=== PATIENT | male | born 1965 | race Caucasian/White ===

== ENCOUNTER 2024-10-01 10:24 | Emergency (ER) | payer MEDICARE, MEDICAID, SELFPAY ==
[2024-10-01 10:32] VITALS: BP 161/88; PULSE 69; RESP 18; TEMP 36.6; O2SAT 98; BMI 26.8
--- NOTE | 2024-10-01 11:09 | XR_ITS ---
WS: [id number] XR hip RT 2-3V wo/w pel* [id number] REASON FOR EXAM: PAIN FINDINGS: No acute fracture or focal bone lesion. Mild narrowing of the joint space. Moderate subchondral sclerosis and significant osteophytosis of the acetabulum. Minimal osteophytosis of the femoral head. XR/XR hip RT 2-3V wo/w pel* [id number] IMPRESSION: Moderate osteoarthritis of the right hip.
--- NOTE | 2024-10-01 11:09 | XR_ITS ---
WS: [id number] XR knee RT 1-2V [id number] REASON FOR EXAM: PAIN FINDINGS: Probable trace joint effusion. No fracture or focal bone lesion. Joint spaces of the knee are intact and relatively well preserved. XR/XR knee RT 1-2V [id number] IMPRESSION: No acute abnormality. Trace joint effusion without significant arthropathic change.
--- OUTSIDE RECORDS SUMMARY | 2024-10-01 11:24 | XMS_ITS | Data Portability ---
Author Organization ID - [id number] [place], ADMIN Address [address] [place] [id number] Care Team Providers Care Physical Chemist Name Role Phone [facility] CATHIE PATTON Primary Care Provider Assessment Encounter Date Assessment Date Assessment LastModified by Organization Details LastModified Time 07/05/2020 07/05/2020 54 y/o gentleman for evaluation of left shoulder partial thickness RCR with ookala 06/17/20 1. Caitlin removed. 2. Rx physical therapy. 3. Continue wearing immobilizer/sling at bed time. 4. Encouraged to use assisted elevation when needed. 5. Continue with at home pendulum exercises 5 timer per day. The pt will RTC in 4 weeks [email or web address] Not available 07/05/2020 16:17:25 08/02/2020 08/02/2020 54 y/o gentleman for evaluation of left shoulder partial thickness RCR with kyle 06/17/20 (6 weeks out) 1. Again demonstrated pendulum exercises, he reports he has been doing this at home. 2. Encouraged to continue assisted elevation, he may not elevate on his own until 8 weeks. 3. D/c sling. 4. Continue formal PT 2 times per week. RTC in 4 weeks. [email or web address] Not available 08/02/2020 10:45:15 11/17/2021 11/17/2021 I did review the x-rays of his lumbar spine from today. He does have evidence of changes of surgical fusion involving the L5-S1 level. He does have multilevel degenerative findings above the fusion. There is no indication of spondylolisthesis related findings. I did review the CT scan of his lumbar spine performed on 11/04/2021 today. He does have evidence of interbody and posterior lateral fusion at the L5-S1 level. He does have laminectomy surgical changes at the L5-S1 level. There is some degree of screw penetrates involving the right S1 foramen in regards to the right S1 pedicle screw. 1. lumbar spondylosis 2. chronic low back pain 3. lumbar radiculopathy 4. previous L5-S1 fusion with laminectomy, performed in 2009 or 2010 in [place], [place] [email or web address] Not available 11/17/2021 12:43:33 05/21/2022 05/21/2022 This is a 56-year-old male who is being seen in consultation for evaluation of GERD and history of colorectal polyps. Patient's last colonoscopy was over 5 years ago. Patient was told he had multiple polyps. He reports a family history of colon cancer in his paternal uncle. The patient has a history of hypertension, diabetes and anxiety. The patient is undergone back surgery, appendectomy. The patient reports no rectal bleeding. He currently takes omeprazole 40 mg daily for acid reflux disorder. Impression: 1. GERD currently on omeprazole 40 mg p.o. daily 2. Screening/surveilla nce colonoscopy 3. History of adenomatous colon polyps with last colonoscopy 5 years ago 4. Family history of colon cancer in paternal uncle 5. Other medical issues: Hypertension, diabetes, anxiety Recommendations: 1. Schedule EGD to evaluate for erosive esophagitis and Casiano's and a screening/surveilla nce colonoscopy 2. Continue omeprazole 40 mg p.o. daily 3. Antireflux precautions 4. follow-up and further recommendations based on endoscopic findings [email or web address] Not available 05/21/2022 18:49:02 07/03/2022 07/03/2022 This is a 56-year-old male who presents for follow-up. The patient completed a colonoscopy for screening/surveilla nce on 06/19/2022 which revealed moderate size internal hemorrhoids, mild to moderate sigmoid diverticulosis, 10 mm and 12 mm sessile left colon polyps otherwise normal examination to cecum. EGD revealed evidence of gastritis. Patient currently is on omeprazole 20 mg p.o. once daily. Biopsy results reviewed. No H. pylori identified, no Casiano's esophagus identified, tubular adenomatous polyp identified. Patient has a family history of colon cancer paternal uncle. Impression: 1. GERD currently on omeprazole 20 mg p.o. daily. EGD 06/19/2022 revealed no Casiano's esophagus. 2. Adenomatous colon polyp 06/19/2022 3. Family history of colon cancer paternal uncle. 4. Other medical issues: Hypertension, diabetes, anxiety. Recommendations: 1. Continue omeprazole 20 mg p.o. daily 2. Antireflux precaution 3. Repeat screening/surveilla nce colonoscopy 2 to 3 years 4. Follow-up and further recommendations based on clinical course. [email or web address] Not available 07/03/2022 20:20:18 Plan of Treatment Reminders Order Date Submit Date Provider Last Modified By Organization Details Last Modified Time Details Appointments None recorded . Lab None recorded . Referral None recorded . Procedures colonosc opy procedur e (PROC) - IV Lock, Initiate Take biopsies if indicate d, possible hemorroi bryson banding, possible argon plasma coagulat ion, possible hot/cold snare polypect valeria, possible dilation of strictur e. CPT: 00518, 08809, 24564,45 382 2022 023 [email or web address] [facility], [address], [place], [address], 3 13:50:27 upper endoscop y procedur e (EGD) (PROC) - Possible Procedur es: Take biopsies if indicate d, possible variceal banding, possible argon plasma coagulat ion, possible esophage al dilation , possible snare polypect valeria. Pre-Proc edure Orders: 1. Start 20 gauge or larger heparin/ saline lock, may use 0.5 ml of 1% lidocain e or topical anesthet ic cream. Start IVF of Lactated Ringers at 80 ML/HR. Post Procedur e: 1. Vitals every 5 minutes times 3, then every 30 minutes until discharg e. 2. Remove IV when tolerati ng liquids well. 3. Discharg e when meets criteria . 4. Schedule Clinic Follow up in 3 weeks CPT: 45259, 23996, 04232, 51250 2022 023 ERIK [facility], [address], [place], [address], 3 09:09:19 Surgeries None recorded . Imaging XR, lumbosac ral spine, 4 or more view [address] (Radiology), [address], [place], [address], 2 10:11:06 MRI, lumbar spine, w/o contrast [address] (Radiology), [address], [place], [address], 2 10:11:06 Medication Orders Suprep Bowel Prep Kit 17.5 gram-3.1 3 gram-1.6 gram oral solution 2022 023 [facility], [address] [place] [address], [id number], 18:52:09 Patient TargetsNo targets recorded. Patient Instructions Encounter Date Encounter Id Patient Instructions Last Modified By Organization Details Last Modified Time 07/05/2020 [id number] Marika Cantu, acting as scribe, for Dr. Janis Valadez, to document his verbalization of the History of Present Illness, Physical Exam, Assessment and Plan. Odessa Seth 07/05/2020, 1510. I, Dr. Janis Valadez, hereby attest that I personally reviewed the documentation in the History of Present Illness, Review of Systems, Physical Exam, Assessment and Plan and agree the documentation accurately represents these services and the decisions I made. I also reviewed the documented Review of Systems and the Past, Family, and Social History made changes and/or additions as needed. Dr. Janis Valadez MD. [email or web address] Not available 07/05/2020 16:10:10 08/02/2020 [id number] Marika Cantu, acting as scribe, for Dr. Janis Valadez, to document his verbalization of the History of Present Illness, Physical Exam, Assessment and Plan. Odessa Seth 08/02/2020, Dr. Janis Cantu, hereby attest that I personally reviewed the documentation in the History of Present Illness, Review of Systems, Physical Exam, Assessment and Plan and agree the documentation accurately represents these services and the decisions I made. I also reviewed the documented Review of Systems and the Past, Family, and Social History made changes and/or additions as needed. Dr. Janis Valadez MD. [email or web address] Not available 08/02/2020 10:42:19 11/17/2021 [id number] I did have a discussion with the patient in regard to his ongoing issues of pain and next steps at this stage. I do think it is appropriate to obtain an MRI of his lumbar spine as a next step as part of his care evaluation for the severe pain issues. I will plan to see him in follow-up to discuss the MRI findings. He will call with questions or concerns in the meantime. [email or web address] Not available 11/17/2021 12:46:07 Reason for Referral None Reported. Results Created Date Observation Date Name Description Value Unit Range Abnormal Flag Note LastModifiedBy Organization Detail LastModifiedTime 06/16/19 21 06/15/2020 CBC w/ auto diff WBC 5.3 K/uL 4.0-11 .0 Not Available [facility] (Lab)_do Not Use [address], [place], [address], 06/15/2020 15:33:27 06/16/19 21 06/15/2020 CBC w/ auto diff RBC 5.43 M/uL 4.44-6 .00 Not Available [facility] (Lab)_do Not Use [address], [place], [address], 06/15/2020 15:33:27 06/16/19 21 06/15/2020 CBC w/ auto diff HGB 17.2 g/dL 13.3-1 7.7 Not Available [facility] (Lab)_do Not Use [address], [place], [address], 06/15/2020 15:33:27 06/16/19 21 06/15/2020 CBC w/ auto diff HCT 50.2 % 40.0-5 4.0 Not Available [facility] (Lab)_do Not Use [address], [place], [address], 06/15/2020 15:33:27 06/16/19 21 06/15/2020 CBC w/ auto diff MCV 92.5 fL 80.0-9 7.0 Not Available [facility] (Lab)_do Not Use [address], [place], [address], 06/15/2020 15:33:27 06/16/19 21 06/15/2020 CBC w/ auto diff MCH 31.7 pg 27.0-3 3.0 Not Available [facility] (Lab)_do Not Use [address], [place], [address], 06/15/2020 15:33:27 06/16/19 21 06/15/2020 CBC w/ auto diff MCHC 34.3 g/dL 32.0-3 6.0 Not Available [facility] (Lab)_do Not Use [address], [place], [address], 06/15/2020 15:33:27 06/16/19 21 06/15/2020 CBC w/ auto diff RDW 13.8 % 11.5-1 4.5 Not Available [facility] (Lab)_do Not Use [address], [place], [address], 06/15/2020 15:33:27 06/16/19 21 06/15/2020 CBC w/ auto diff MPV 7.8 fL 7.4-10 .4 Not Available [facility] (Lab)_do Not Use [address], [place], [address], 06/15/2020 15:33:27 06/16/19 21 06/15/2020 CBC w/ auto diff platelet count 207 K/uL 150-45 0 Not Available [facility] (Lab)_do Not Use [address], [place], [address], 06/15/2020 15:33:27 06/16/19 21 06/15/2020 CBC w/ auto diff neutrophils 59.9 % 37.0-7 0.0 Not Available [facility] (Lab)_do Not Use [address], [place], [address], 06/15/2020 15:33:27 06/16/19 21 06/15/2020 CBC w/ auto diff lymphocytes 26.8 % 21.0-5 1.0 Not Available [facility] (Lab)_do Not Use [address], [place], [address], 06/15/2020 15:33:27 06/16/19 21 06/15/2020 CBC w/ auto diff monocytes 10.2 % 2.0-9. 0 high Not Available [facility] (Lab)_do Not Use [address], [place], [address], 06/15/2020 15:33:27 06/16/19 21 06/15/2020 CBC w/ auto diff eosinophils 2.3 % 0.0-3. 0 Not Available [facility] (Lab)_do Not Use [address], [place], [address], 06/15/2020 15:33:27 06/16/19 21 06/15/2020 CBC w/ auto diff basophils 0.8 % 0.0-1. 0 Not Available [facility] (Lab)_do Not Use [address], [place], [address], 06/15/2020 15:33:27 06/16/19 21 06/15/2020 CBC w/ auto diff absolute neutrophils 3.1 K/uL 2.0-8. 0 Not Available [facility] (Lab)_do Not Use [address], [place], [place], [address], 06/15/2020 15:33:27 06/16/19 21 06/15/2020 CBC w/ auto diff absolute lymphocytes 1.4 K/uL 1.0-5. 5 Not Available [facility] (Lab)_do Not Use [address], [place], [place], [address], 06/15/2020 15:33:27 06/16/19 21 06/15/2020 CBC w/ auto diff absolute monocytes 0.5 K/uL 0.3-0. 8 Not Available [facility] (Lab)_do Not Use [address], [place], [place], [address], 06/15/2020 15:33:27 06/16/19 21 06/15/2020 CBC w/ auto diff absolute eosinophils 0.1 K/uL 0.0-0. 6 Not Available [facility] (Lab)_do Not Use [address], [place], [place], [address], 06/15/2020 15:33:27 06/16/19 21 06/15/2020 CBC w/ auto diff absolute basophils 0.0 K/uL 0.0-0. 3 Not Available [facility] (Lab)_do Not Use [address], [place], [address], 06/15/2020 15:33:27 06/16/19 21 06/15/2020 CMP, serum or plasm a glucose 99 mg/dL 70-110 Not Available [facility] (Lab)_do Not Use [address], [place], [place], [address], 06/15/2020 15:38:06 06/16/19 21 06/15/2020 CMP, serum or plasm a BUN 4 mg/dL 7-18 low Not Available [facility] (Lab)_do Not Use [address] [place], [address], 06/15/2020 15:38:06 06/16/19 21 06/15/2020 CMP, serum or plasm a creatinine 0.8 mg/dL 0.5-1. 4 Not Available [facility] (Lab)_do Not Use [address] [place], [address], 06/15/2020 15:38:06 06/16/19 21 06/15/2020 CMP, serum or plasm a calcium 9.7 mg/dL 8.5-10 .1 Not Available [facility] (Lab)_do Not Use [address] [place], [address], 06/15/2020 15:38:06 06/16/19 21 06/15/2020 CMP, serum or plasm a sodium 135 mmol/ L 135-14 8 Not Available [facility] (Lab)_do Not Use [address] [place], [address], 06/15/2020 15:38:06 06/16/19 21 06/15/2020 CMP, serum or plasm a potassium 3.8 mEq/L 3.5-5. 3 Not Available [facility] (Lab)_do Not Use [address], [place], [address], 06/15/2020 15:38:06 06/16/19 21 06/15/2020 CMP, serum or plasm a chloride 101 mmol/ L 95-110 Not Available [facility] (Lab)_do Not Use [address], [place], [address], 06/15/2020 15:38:06 06/16/19 21 06/15/2020 CMP, serum or plasm a CO2 24 mmol/ L 21-34 Not Available [facility] (Lab)_do Not Use [address], [place], [place], [address], 06/15/2020 15:38:06 06/16/19 21 06/15/2020 CMP, serum or plasm a albumin 4.1 g/dL 3.5-5. 0 Not Available [facility] (Lab)_do Not Use [address], [place], [place], [address], 06/15/2020 15:38:06 06/16/19 21 06/15/2020 CMP, serum or plasm a bilirubin 0.5 mg/dL 0.0-1. 0 Not Available [facility] (Lab)_do Not Use [address], [place], [place], [address], 06/15/2020 15:38:06 06/16/19 21 06/15/2020 CMP, serum or plasm a alkaline phosphatase 70 U/L 50-136 Not Available [facility] (Lab)_do Not Use [address], [place], [place], [address], 06/15/2020 15:38:06 06/16/19 21 06/15/2020 CMP, serum or plasm a protein 7.6 g/dL 6.4-8. 3 Not Available [facility] (Lab)_do Not Use [address], [place], [place], [address], 06/15/2020 15:38:06 06/16/19 21 06/15/2020 CMP, serum or plasm a ALT (SGPT) 27 U/L 30-65 low Not Available [facility] (Lab)_do Not Use [address], [place], [place], [address], 06/15/2020 15:38:06 06/16/19 21 06/15/2020 CMP, serum or plasm a AST (SGOT) 23 U/L 15-37 Not Available [facility] (Lab)_do Not Use [address], [place], [place], [address], 06/15/2020 15:38:06 06/16/19 21 06/15/2020 CMP, serum or plasm a A/G ratio 1.17 Na 1.00-2 .50 Not Available [facility] (Lab)_do Not Use [address], [place], [place], [address], 06/15/2020 15:38:06 06/16/19 21 06/15/2020 CMP, serum or plasm a BUN/creatine ratio 5.00 Na 6.00-2 0.00 low Not Available [facility] (Lab)_do Not Use [address], [place], [place], [address], 06/15/2020 15:38:06 06/16/19 21 06/15/2020 CMP, serum or plasm a anion gap 10.0 mmol/ L 3.0-11 .0 Not Available [facility] (Lab)_do Not Use [address], [place], [place], [address], 06/15/2020 15:38:06 06/16/19 21 06/15/2020 CMP, serum or plasm a osmolality calcuated 267 mOsm/ kg 275-29 5 low Not Available [facility] (Lab)_do Not Use [address], [place], [place], [address], 06/15/2020 15:38:06 06/16/19 21 06/15/2020 GFR, estim ated (eGFR ), serum GFR >60.00 mL/mi n >60.00 Not Available [facility] (Lab)_do Not Use [address], [place], [place], [address], 06/15/2020 15:38:11 06/16/19 21 06/15/2020 urina lysis , dipst ick color COLORL ESS Na Not Available [facility] (Lab)_do Not Use [address], [place], [address], 06/15/2020 15:38:12 06/16/19 21 06/15/2020 urina lysis , dipst ick appearance CLEAR Na Not Available [facility] (Lab)_do Not Use [address], [place], [address], 06/15/2020 15:38:12 06/16/19 21 06/15/2020 urina lysis , dipst ick specific gravity 1.001 Na 1.005- 1.030 Not Available [facility] (Lab)_do Not Use [address], [place], [address], 06/15/2020 15:38:12 06/16/19 21 06/15/2020 urina lysis , dipst ick pH urine 6.0 Na 4.5-7. 5 Not Available [facility] (Lab)_do Not Use [address], [place], [address], 06/15/2020 15:38:12 06/16/19 21 06/15/2020 urina lysis , dipst ick leukocytes esterase NEGATI VE Na negati ve Not Available [facility] (Lab)_do Not Use [address], [place], [address], 06/15/2020 15:38:12 06/16/19 21 06/15/2020 urina lysis , dipst ick nitrites NEGATI VE Na negati ve Not Available [facility] (Lab)_do Not Use [address], [place], [address], 06/15/2020 15:38:12 06/16/19 21 06/15/2020 urina lysis , dipst ick urine protein NEGATI VE mg/dL negati ve Not Available [facility] (Lab)_do Not Use [address], [place], [address], 06/15/2020 15:38:12 06/16/19 21 06/15/2020 urina lysis , dipst ick glucose ur NEGATI VE mg/dL negati ve Not Available [facility] (Lab)_do Not Use [address], [place], [address], 06/15/2020 15:38:12 06/16/19 21 06/15/2020 urina lysis , dipst ick ketones NEGATI VE mg/dL negati ve Not Available [facility] (Lab)_do Not Use [address], [place], [address], 06/15/2020 15:38:12 06/16/19 21 06/15/2020 urina lysis , dipst ick urobilinogen NEGATI VE mg/dL 0.2-1. 0 Not Available [facility] (Lab)_do Not Use [address], [place], [address], 06/15/2020 15:38:12 06/16/19 21 06/15/2020 urina lysis , dipst ick bilirubin NEGATI VE Na negati ve Not Available [facility] (Lab)_do Not Use [address], [place], [address], 06/15/2020 15:38:12 06/16/19 21 06/15/2020 urina lysis , dipst ick blood NEGATI VE Na negati ve Not Available [facility] (Lab)_do Not Use [address], [place], [address], 06/15/2020 15:38:12 06/16/19 21 06/15/2020 covid Ag covid Ag michelle Negati ve Na negati ve Metho dolog y:Sof ia Sars Ag MICHELLE. Negat keisha resul ts do not rule out COVID -19 and shoul d not be used as the sole basis for treat ment or patie nt manag ement decis ions, inclu ding infec tion contr ol decis ions. Negat keisha resul ts shoul d be consi dered in the bess xt of a patie nt's recen t expos ures, histo ry and prese nce of clini anny signs and sympt oms consi stent with COVID -19. Not Available [facility] (Lab)_do Not Use [address], [place], [address], 06/15/2020 15:43:41 06/16/19 21 06/15/2020 HbA1c (hemo globi n A1c), blood HGB A1C 5.7 % 4.8-6. 0 Not Available [facility] (Lab)_do Not Use [address], [place], [address], 06/15/2020 15:44:08 06/18/19 21 06/17/2020 gluco se, finge rstic k, blood bedside glucose 125.00 mg/dL 70.00- 110.00 high Not Available [facility] (Lab)_do Not Use [address], [place], [address], 06/17/2020 09:46:55 06/20/19 23 06/19/2022 GLUCO SE LEVEL POC BEDSI DE glu POC bdside 124 mg/dL 65-90 [place]: [id number] Not Available [facility] (Lab) [address], [place], [address], 06/19/2022 07:45:29 06/20/19 23 06/30/2022 SURGI ANNY PATHO LOGY REPOR T results . ACCES GUERO: 850-S P-23- [id number] RESPO NSIBL E PATHO LOGIS T: YESENIA DANIEL MD COLLE CTED DATE/ TIME: 023 07:37 CDT [facility] DATE/ TIME 023 09:19 CDT Surgi anny Patho logy Repor t - 2022 15:08 CDT - Auth (Veri fied) Speci men 1 Gastr ic bx 2 GE junct ion bx 3 Left colon polyp x 2 Diagn osis 1. STOMA CH, BIOPS Y: NO HISTO PATHO LOGIC ABNOR MALIT Y, WITH NO HELIC OBACT ER PYLOR I ORGAN ISMS SEEN ON H&E STAIN . 2. GASTR OESOP HAGEA L JUNCT ION, BIOPS Y: GASTR IC MUCOS A ONLY, INFLA MED AND WITH REACT KEISHA AGUILAR ES. - NO HELIC OBACT ER PYLOR I ORGAN ISMS ARE SEEN ON H&E STAIN . - NO EVIDE NCE OF SPECI SHELLI D INTES TINAL -TYPE MUCOS A. 3. LARGE INTES MAHAD, LEFT COLON , POLYP ECTOM Y: TUBUL AR ADENO MAS. El ectro nical ly Michelle d By YESENIA DANIEL MD 06/30 15:08 CDT Saqib Bello Patho logis t Emily tant 06/20 09:46 CDT MRS Perfo rmed at: [facility] [address] [facility] [place] [address] Phone : Micro scopi c Descr iptio n Micro scopi c exami natio n is perfo rmed. All stain s perfo rmed for this case (whic h may inclu de H&E, froze n secti on, immun ohist ochem istry , and speci al stain s) have been evalu ated by quali fied patho logis t and are consi dered accep table . All contr ols show appro priat e react ivity . Gross Descr iptio n 1. Recei hossein in a forma michael-f illed conta iner label ed with the patie nt's name (Turn er, Jose Antonio y S), date of (08/26 ), and desig nated as Sina luis daniel bx, are four irreg ular mahan-r ed soft tissu e fragm ents measu ring 0.3-0 .5 cm in dimen guero. The speci men is entir natty submi tted in a casse tte label ed 1A . 2. Recei hossein in a forma michael-f illed conta iner label ed with the patie nt's name (Jose Antonio Cid y S), date of (08/26 ), and desig nated as GE junct ion bx, are two irreg ular mahan-r ed soft tissu e fragm ents measu ring 0.3 and 0.4 cm in dimen guero. The speci men is entir natty submi tted in a casse tte label ed 2A . 3. Recei hossein in a forma michael-f illed conta iner label ed with the patie nt's name (Thom erGarryn y S), date of (08/26 ), and desig nated as Left colon polyp x 2, are two irreg ular mahan-r ed soft tissu e fragm ents each measu ring 0.4 cm in great est dimen guero. The speci men is entir natty submi tted in a casse tte label ed 3A . MRS/M RS/MR S 06/20 09:46 CDT Patho logis t Gross Revie w 06/20 11:40 :58 CDT MRS 06/21 08:33 :10 CDT BP Clini anny Histo ry GERD , colon scree shashank ACCES GUERO: 850-S P-23- [id number] RESPO NSIBL E PATHO LOGIS T: YESENIA DANIEL MD COLLE CTED DATE/ TIME: 023 07:37 CDT [facility] DATE/ TIME 023 09:19 CDT Clini anny Histo ry Proce dure: EGD/C OLON Preop erati ve Diagn osis: GERD, colon scree shashank Posto perat keisha Diagn osis: See endo repor t Not Available [facility] (Lab) [address] [place] [address], [place], [address], 06/30/2022 16:08:45 06/16/19 21 06/15/2020 XR, chest , 1 view PARTIA L THICKN ESS ROTATO R CUFF TEAR PRE-OP FOR 4-2 Proced ure Acknow ledge Date: 2020 12:21 PM EXAM: Single view chest. HISTOR Y: Preop evalua tion COMPAR GORDON: 2016 FINDIN GS: The heart is normal in size. Pulmon jaycee vascul arity is within normal limits . No focal airspa ce opacit y or pleura l effusi on is seen. Osseou s struct ures are unrema rkable . IMPRES GUERO: No acute cardio pulmon jaycee findin gs. DICTAT ED DATE: 1338 DICTAT ED BY: Edis Newton M.D. TRANSC RIBED DATE: 1338 TRANSC RIBED BY: JAKE SIGNED BY: Edis Newton M.D. DT: 2020 01:39 PM Dictat ed By: EDIS NEWTON MD DF: 2020 01:39 PM Signed By: EDIS NEWTON MD Provid er(s): Alberto Caal er: Result Copies To: Attend belle Doctor : JANIS VALADEZ Referr belle Doctor : Mony sherwood Doctor : Anthony odonnell Doctor : Other Health care Provid er: [email or web address] [place] [address] (Radiology) [address], [place], [address], 06/15/2020 17:08:06 06/16/19 21 06/15/2020 XR, chest No observ ation record ed. [email or web address] [facility] (Radiology Dept) [address], [place], [address], 06/15/2020 17:07:32 11/18/19 22 11/17/2021 sp-LS spine W bnd dr Gaston4.50 CHRONI C LOW BACK PAIN Proced ure Acknow ledge Date: 2021 10:19 AM EXAM: AP, latera l, flexio n, and extens ion views of the lumbar spine. HISTOR Y: Chroni c low back pain COMPAR GORDON: CT lumbar spine 2021. FINDIN GS: No eviden ce of lumbar scolio sis is seen. Black Off Worker ior karyn and pedicl e screw fusion is again seen spanni ng L5-S1. The verteb ral body height s appear mainta ined. Minima l multil evel disc space narrow ing with small endpla te osteop hytes are seen. No signif icant listhe sis is seen. Lower lumbar facet osteoa rthrit is is seen. OPINIO N: 1. No signif icant listhe sis. 2. Minor lumbar spondy losis. 3. L5-S1 limnologist ior fusion . DICTAT ED DATE: 1619 DICTAT ED BY: Edis Newton M.D. TRANSC RIBED DATE: 1619 TRANSC RIBED BY: JAKE SIGNED BY: Edis Newton M.D. DT: 2021 04:20 PM Dictat ed By: EDIS NEWTON MD DF: 2021 04:20 PM Signed By: EDIS NEWTON MD Suppor ting Provid er(s): Orderi ng Provid er: Result Copies To: Yvonne [facility] Doctor : KRANTHI Riddle Referr [facility] Doctor : Mony sherwood Doctor : Anthony odonnell Doctor : Other Health care Provid er: [email or web address] [place] [address] (Radiology) [address] [facility], [place], [address], 12/22/2021 18:17:36 Result Notes None recorded. Problems Name Problem SNOMED Code Status Onset Date Resolution Date Notes Provider Name and Address Organization Details Recorded Time Chronic low back pain 861318111 Active 022 ABEBE Garcia, [address] 11:43:15 Problem Notes None recorded. Procedures Surgical History Date Name Laterality Status Provider Name and Address Organization Details Recorded Time Cholecystectomy completed [facility] Schmidt LPN [facility] [place] 01/07/2020 10:50:36 Appendectomy completed Carey Schmidt LPN [address] 01/07/2020 10:50:44 Back Surgery completed Carey Schmidt LPN [address] 01/07/2020 10:50:59 Shoulder joint surgery completed Jacinta Weber RN [address] 11/17/2021 11:45:24 Imaging Results None recorded. Procedure Notes None recorded. Medical Equipment None Reported. Allergies Allergen ID Allergen Name Allergen Category Reaction Reaction Severity Criticality Documentation Date Start Date Code Code System Note Provider Name and Address Organization Details Recorded Time 11477 morphine medicatio n Not available Not available Not available 01/07/2020 7052 RxNorm Careynoble Schmidt LPN compa [address] 0 10:47:43 [address]6796 Substance with sulfonami de structure and antibacte rial mechanism of action (substanc e) medicatio n Not available Not available Not available 01/07/2020 00229 8003 SNOMED Careymichelet Schmidt LPN compa [address] 0 10:47:50 Medications Name Sig Start Date Stop Date Status Note LastModified by Organization Details LastModified Time magic mouthwash milliliters active Not Available Not Available Not Available cyclobenzap rine 10 mg tablet TAKE ONE TABLET BY MOUTH TWICE DAILY NEEDED FOR MUSCLE PAIN/SPAS MS active Not Available Not Available No t Available metformin 500 mg tablet 01/06 completed Not Available Not Available Not Available albuterol sulfate 2.5 mg/3 mL (0.083 %) solution for nebulizatio n USE THE CONTENTS OF 1 VIAL VIA NEBULIZER FOUR TIMES DAILY NEEDED active Not Available Not Available No t Available oxybutynin chloride ER 10 mg tablet,exte nded release 24 hr active Not Available Not Available Not Available azithromyci n 250 mg tablet TAKE 2 TABLETS BY MOUTH ON DAY 1, AND THEN TAKE 1 TABLET BY MOUTH ONCE A DAY ON DAY 2 THROUGH DAY 5 11/17 completed Not Available Not Available Not Available alprazolam 1 mg tablet TAKE 1 TABLET BY MOUTH EVERY DAY NEEDED active Not Available Not Available No t Available Lidocaine Viscous 2 % mucosal solution 01/06 completed Not Available Not Available Not Available albuterol sulfate 1.25 mg/3 mL solution for nebulizatio n Inhale 3 mL 3 times a day by inhalatio n route. 11/17 completed Not Available Not Available Not Available ondansetron HCl 8 mg tablet TAKE 1 TABLET BY MOUTH TWICE DAILY NEEDED active Not Available Not Available No t Available ondansetron HCl 4 mg tablet 01/06 completed Not Available Not Available Not Available prednisone 20 mg tablet TAKE 3 TABLETS BY MOUTH ONCE DAILY FOR 5 DAYS active Not Available Not Available No t Available acyclovir 400 mg tablet 01/06 completed Not Available Not Available Not Available hydrocodone 10 mg-acetamin ophen 325 mg tablet TAKE ONE TABLET BY MOUTH FOUR TIMES DAILY NEEDED FOR PAIN active Not Available Not Available No t Available omeprazole 40 mg capsule,del ayed release TAKE 1 CAPSULE BY MOUTH EVERY DAY active Not Available Not Available No t Available sildenafil 100 mg tablet TAKE 1 TABLET BY MOUTH ONCE DAILY FOR 30 DAYS active Not Available Not Available No t Available hydrocodone 7.5 mg-acetamin ophen 325 mg tablet TAKE 1 TABLET BY MOUTH FOUR TIMES DAILY NEEDED FOR PAIN 11/17 completed Not Available Not Available Not Available cephalexin 500 mg capsule 01/06 completed Not Available Not Available Not Available metformin 1,000 mg tablet TAKE 1 TABLET BY MOUTH TWICE DAILY active Not Available Not Available No t Available losartan 25 mg tablet TAKE 1 TABLET BY MOUTH EVERY DAY DIRECTED active Not Available Not Available No t Available gabapentin 300 mg capsule TAKE ONE CAPSULE BY MOUTH THREE TIMES DAILY active Not Available Not Available No t Available omeprazole 20 mg capsule,del ayed release TAKE 1 CAPSULE BY MOUTH EVERY DAY 11/17 completed Not Available Not Available Not Available montelukast 10 mg tablet active Not Available Not Available Not Available alcohol swabs 11/17 completed Not Available Not Available Not Available mupirocin 2 % topical ointment 01/06 completed Not Available Not Available Not Available ergocalcife rol (vitamin D2) 1,250 mcg (50,000 unit) capsule active Not Available Not Available Not Available albuterol sulfate HFA 90 mcg/actuati on aerosol inhaler INHALE 2 PUFFS BY MOUTH EVERY 6 HOURS NEEDED active Not Available Not Available No t Available naproxen 500 mg tablet TAKE ONE TABLET BY MOUTH TWICE DAILY WITH MEALS active Not Available Not Available No t Available amoxicillin 875 mg-potassiu m clavulanate 125 mg tablet TAKE 1 TABLET BY MOUTH EVERY 12 HOURS WITH MEALS FOR 10 DAYS active Not Available Not Available No t Available neomycin 3.5 mg/g-polymy supriya B 10,000 unit/g-dexa meth 0.1 % eye oint active Not Available Not Available Not Available neomycin-po lymyxin-hyd rocort 3.5 mg-10,000 unit/mL-1 % ear drops,susp 01/06 completed Not Available Not Available Not Available escitalopra m 10 mg tablet Take 1 tablet every day by oral route. 11/17 completed Not Available Not Available Not Available rosuvastati n 5 mg tablet TAKE 1 TABLET BY MOUTH AT BEDTIME active Not Available Not Available No t Available metformin ER 1,000 mg tablet,exte nded release 24 hr Take by oral route. 01/06 completed Not Available Not Available Not Available omeprazole 01/06 completed Not Available Not Available Not Available naproxen 01/06 completed Not Available Not Available Not Available cyclobenzap rine 01/06 completed Not Available Not Available Not Available sodium,pota ssium,mag sulfates 17.5 gram-3.13 gram-1.6 gram oral soln Take 177 mL twice a day by oral route as directed for 1 day. active Not Available Not Available No t Available OneTouch Verio test strips active Not Available Not Available Not Available naloxone 4 mg/actuatio n nasal spray USE 1 SPRAY INTRANASA LLY THEN CALL 911 FOR EMERGENCY TREAMENT active Not Available Not Available No t Available OneTouch Verio Flex Meter active Not Available Not Available Not Available OneTouch Delica Plus Lancet 30 gauge active Not Available Not Available Not Available Vitals Date Recorded Body height Body mass index (BMI) Body weight Oxygen saturation Oxygen saturation in Arterial blood by Pulse oximetry Heart rate Body temperature Systolic And Diastolic Provider Name and Address Organization Details Last Updated DateTime 3 182.88 cm 27.6 kg/m2 21876.1 3 g 98 % 98 % 82 /min 98.3 [degF] 118/73 mm[Hg] Magali Eason LPN [place] [facility] [place] 3 16:21:20 Date Recorded Body height Body mass index (BMI) Body weight Oxygen saturation Oxygen saturation in Arterial blood by Pulse oximetry Heart rate Systolic And Diastolic Provider Name and Address Organization Details Last Updated DateTime 3 182.88 cm 27.3 kg/m2 96659.0 7 g 98 % 98 % 80 /min 128/78 mm[Hg] Harmeet Wolfe LPN [address] 3 14:45:07 Date Recorded Body height Body mass index (BMI) Body weight Heart rate Body temperature Systolic And Diastolic Provider Name and Address Organization Details Last Updated DateTime 1 182.88 cm 27 kg/m2 93190.8 8 g 83 /min 97.7 [degF] 148/91 mm[Hg] Angelica Mata LPN [address] 1 15:47:31 Date Recorded Body height Body mass index (BMI) Body weight Heart rate Body temperature Systolic And Diastolic Provider Name and Address Organization Details Last Updated DateTime 1 182.88 cm 27.1 kg/m2 11621.4 7 g 76 /min 96.8 [degF] 138/84 mm[Hg] Angelica Mata LPN [address] 1 10:24:39 Date Recorded Body height Body mass index (BMI) Body weight Heart rate Systolic And Diastolic Provider Name and Address Organization Details Last Updated DateTime 11/17/2021 182.88 cm 27.1 kg/m2 01007.47 g 90 /min 153/85 mm[Hg] Jacinta Weber RN [address] 11/17/2021 11:40:41 Social History Question Answer Notes LastModified by Organizat ion Details LastModified Time Tobacco Smoking Status Never Smoker STEPHANIE Navarrete, [address] 01/07/2020 16:11:58 What Is Your Level Of Caffeine Consumption? Heavy [email or web address] Information not available 05/12/2020 What Type Of Diet Are You Following? DIABETIC [email or web address] Information not available 05/12/2020 Education 12 [email or web address] Information n ot available 05/12/2020 Which Of Your Hands Is Dominant? Bilateral [email or web address] Information not available 05/12/2020 Live Alone Or With Others? With Others [email or web address] Information not available 05/12/2020 Marital Status [email or web address] Informati on not available 05/12/2020 What Was The Date Of Your Most Recent Tobacco Screening? 11/17/2021 [email or web address] Information not available 11/17/2021 Sex: Unknown Functional Status Question Answer Note LastModified by Organizat ion Details LastModified Time What is your level of alcohol consumption? Occasional [email or web address] Information not available 01/07/2020 Do you or have you ever used smokeless tobacco? Currently chews tobacco [email or web address] Information not available 05/12/2020 Are you currently employed? No [email or web address] Information not available 05/12/2020 Are you able to care for yourself? Yes [email or web address] Information not available 05/12/2020 Do you or have you ever used e-cigarettes or vape? Never used electronic cigarettes [email or web address] Information not available 05/12/2020 Mental Status None recorded. Family History Relationship Description Onset Age of this Age Resolved Age Notes LastModified by Organization Details LastModified Time Father Diabetes mellitus [email or web address] Not available 04/19 12:26:00 Father Cerebrovascu lar accident [email or web address] Not available 0 05/12/2020 12:26:33 Father Hypertensive disorder [email or web address] Not available 04/19 12:26:50 Mother Malignant neoplasm of lung [email or web address] Not available 04/19 12:26:14 Mother Hypertensive disorder [email or web address] Not available 04/19 12:26:50 Medical History Condition Response ARTHRITIS N HEADACHES N RHEUMATIC FEVER N USE OF BLOOD THINNERS N STROKE N DIABETES Y HIGH CHOLESTEROL N BLOOD CLOTS N HEPATITIS / LIVER DISEASE N ASTHMA Y PULMONARY DISEASE Y CAROTID BLOCKAGE N CONCUSSION OR SPINAL TRAUMA Y SEIZURES N SLEEP DISORDER Y DEPRESSION (INCLUDING POST ) N BACK / NECK PROBLEMS Y HAVE YOU BEEN HOSPITALIZED OR SEEN IN [facility] IN THE PAST YEAR ? Y HERPES N THYROID DISEASE N ALLERGIES Y ANEMIA N DIZZINESS N GERD / HEARTBURN / REFLUX Y HERNIATED DISC Y HYPERTENSION N CARDIAC ARRHYTHMIA N HIV / AIDS N ANXIETY DISORDER Y ANEMIA/BLOOD DISORDER N PNEUMONIA Y ANEURYSM N PULMONARY EMBOLISM N BRONCHITIS Y HEART DISEASE N CANCER N Past Encounters Encounter ID Performer Location Encounter Start Date Encounter Closed Date Diagnosis/Indication Diagnosis SNOMED-CT Code Diagnosis ICD10 Code Diagnosis Note [id number] Sara Pendleton MD [facility] [address] [place] [id number] 01/07/2020 15:42:27 01/07/2020 16:51:57 Obstructive sleep apnea syndrome 48647283 G47.33 Home sleep study showed an RDI of 8.5. Patient does have daytime fatigue and sleepiness . The did mention witnessed apnea. Today the patient will be started on auto CPAP 5-20 cm H2O. The plan is:1. Start Auto C-pap. Patient undergo mask fitting.2. Follow-up in 6 weeks. Asthma 094464391 J45.90 9 The patient mentioned shortness of breath on exertion. He has history of asthma. He is on Ventolin inhaler as needed. She uses the inhaler around 2 to 3 times a week. His symptoms are consistent with intermitte nt asthma. I recommend continued Ventolin inhaler as needed. [id number] JANIS VALADEZ MD [facility] [address] [place] [id number] 05/12/2020 11:01:43 05/12/2020 15:20:11 Pain of left shoulder joint 5969044372 2055634 M25.760 [id number] JANIS VALADEZ MD [facility] [address] [place] [id number] 06/02/2020 15:06:15 06/02/2020 16:45:17 Partial thickness rotator cuff tear 949002994 M75.112 Arthritis of left glenohumeral joint 7360457075 327557 M13.812 Arthritis of left acromioclavicular joint 3387499512 676196 M13.715 [id number] JANIS VALADEZ MD [facility] [address] [place] [id number] 07/05/2020 15:19:59 07/05/2020 16:18:52 History of repair of musculotendinous cuff of shoulder 162252492 Z98.890 s/p left shoulder partial thickness RCR with kyle 06/17/20 Postoperative visit 1836 76847 Z09 s/p left shoulder partial thickness RCR with kyle 06/17/20 [id number] JANIS VALADZE MD [facility] [address] [place] [address] 08/02/2020 10:14:17 08/02/2020 10:43:59 History of repair of musculotendinous cuff of shoulder 146899657 Z98.890 s/p left shoulder partial thickness RCR with kyle 06/17/20 Postoperative visit 1836 03287 Z09 s/p left shoulder partial thickness RCR with kyle 06/17/20 [id number] Robert Acuna DO [facility] [address] [place] [place] [address] 11/17/2021 10:32:50 11/17/2021 12:49:00 Chronic low back pain 325730759 M54.50 Lumbar spondylosis 46860 0009 M47.896 Lumbar radiculopathy 128 826732 M54.16 History of operative procedure on lumbar spinal structure 128906978 Z98.165 [id number] Binu Anaya MD [facility] [address] [place] [id number] 05/21/2022 15:59:18 05/21/2022 16:32:49 Gastroesophageal reflux disease without esophagitis 385747672 K21.9 History of polyp of colon 259986841 Z86.010 Family his tory of cancer of colon 705564795 Z80.0 [id number] Binu Anaya MD [facility] [address] [place] [address] 07/03/2022 14:37:16 07/03/2022 15:39:16 Gastroesophageal reflux disease without esophagitis 967459252 K21.9 Adenomatou s polyp of colon 900233804 D12.6 Health Concerns Section Related Observation LastModified by Organization Detai ls LastModified Time None Recorded Concern Status LastModified by Organization Details LastModified Time None Recorded Advance Directives Directive None Recorded Payers Insurance Date Sequence Insurance Name Policy Number Policy Henderson Covered Member ID Henderson Member ID Guarantor Name 07/03/2022 2 [place] Amos Diggs Jr [id number] 07/03/2022 1 [place] Amos Diggs [id number] 07/03/2022 1 [facility] (MEDICARE REPLACEMENT/A DVANTAGE - HMO) Amos Diggs [id number] Notes Date Note Type Note Provider Name and Address Organization Details Recorded Time 07/05/2020 text/html Pt is a pleasant 54 y/o gentleman who presents for evaluation of left shoulder partial thickness RCR with ookala 06/17/20. He arrives today rating his pain at a 5 out of 10 in severity. Pt denies associated numbness and confirms tingling. Pt confirms doing at home pendulum exercises. He has c/o stiffness. He has been wearing his sling as instructed. JANIS VALADEZ MD [address] [place] [address], [phone], [address] 07/05/2020 18:01:06 08/02/2020 text/html Pt is a pleasant 54 y/o gentleman who presents for evaluation of left shoulder partial thickness RCR with ookala 06/17/20. He arrives today rating his pain at a 6/10 in severity. Pt denies associated numbness and confirms tingling. Pt confirms doing at home pendulum exercises. His stiffness has improved. He has been wearing his sling as instructed. He has been compliant with formal PT at rehab. Pt would like to cut down on formal PT to 2 times per week. JANIS VALADEZ MD [address] [place] [address], [phone], [facility] [place] 08/02/2020 11:33:48 11/17/2021 text/html Amos Diggs is a pleasant 56-year-old male who presents to the clinic today in regard issues of low back and lower extremity radiating pain. He describes many years of diffuse low back and left lower extremity radicular type pain issues. However, about 2-3 weeks ago or so he developed a sudden onset of severe right-sided low back and right lower extremity radicular pain as a new issue. He did go to the emergency room regarding further consideration of these new pain issues. He denies injury. He did undergo a lumbar fusion procedure with laminectomy it would seem at the L5-S1 level in 2009 or 2010 in [place], [place]. He describes some degree of improvement in his pain issues at that time, but he denies resolution of his low back and left lower extremity radicular pain it would seem in many respects. He is concerned about quality of life issues as it pertains to those ongoing issues of low back and left lower extremity radicular pain. He has been in pain management for a number of years now. He is on narcotic pain medication and has been receiving occasional targeted injection based procedures with pain management. He is concerned about the severity of his new symptoms. He describes pain that is constant at this stage. He describes exacerbation of symptoms with most activities of daily living. He denies improvement in pain thus far. Robert Acuna DO [address] [place] [address], [phone], [facility] [place] 11/17/2021 12:46:28 05/21/2022 text/html This is a 56-yea r-old male who is being seen in consultation for evaluation of GERD and history of colorectal polyps. Patient's last colonoscopy was over 5 years ago. Patient was told he had multiple polyps. He reports a family history of colon cancer in his paternal uncle. The patient has a history of hypertension, diabetes and anxiety. The patient is undergone back surgery, appendectomy. The patient reports no rectal bleeding. He currently takes omeprazole 40 mg daily for acid reflux disorder.Impression:1 . GERD currently on omeprazole 40 mg p.o. daily2. Screening/surveillanc e colonoscopy3. History of adenomatous colon polyps with last colonoscopy 5 years ago4. Family history of colon cancer in paternal uncle5. Other medical issues: Hypertension, diabetes, anxietyRecommendation s: 1. Schedule EGD to evaluate for erosive esophagitis and Casiano's and a screening/surveillanc e colonoscopy 2. Continue omeprazole 40 mg p.o. daily 3. Antireflux precautions 4. follow-up and further recommendations based on endoscopic findings Binu Anaya MD [address] [place] [address], [phone], [facility] [place] 05/21/2022 18:49:14 07/03/2022 text/html This is a 56-yea r-old male who presents for follow-up. The patient completed a colonoscopy for screening/surveillanc e on 06/19/2022 which revealed moderate size internal hemorrhoids, mild to moderate sigmoid diverticulosis, 10 mm and 12 mm sessile left colon polyps otherwise normal examination to cecum. EGD revealed evidence of gastritis. Patient currently is on omeprazole 20 mg p.o. once daily. Biopsy results reviewed. No H. pylori identified, no Casiano's esophagus identified, tubular adenomatous polyp identified. Patient has a family history of colon cancer paternal uncle.Impression: 1. GERD currently on omeprazole 20 mg p.o. daily. EGD 06/19/2022 revealed no Casiano's esophagus.2. Adenomatous colon polyp 06/19/2022 3. Family history of colon cancer paternal uncle.4. Other medical issues: Hypertension, diabetes, anxiety.Recommendatio ns: 1. Continue omeprazole 20 mg p.o. daily 2. Antireflux precaution 3. Repeat screening/surveillanc e colonoscopy 2 to 3 years 4. Follow-up and further recommendations based on clinical course. Binu Anaya MD [address] [place], [phone], [facility] [place] 07/03/2022 20:20:35
--- OUTSIDE RECORDS SUMMARY | 2024-10-01 11:24 | XMS_ITS | Patient Health Record ---
Author Organization [facility] Address [address] [place] [address] Care Team Providers Care Construction Management Assistant Name Role Phone Aj Stone Primary Care Provider Hira Holden Unavailable [phone] Leonora Kern Unavailable [phone] Jorge Marcelina Unavailable [phone] Chace Betts Unavailable [phone] Yanna Ward Unavailable [phone] Allergies Allergen (clinical drug ingredient) Drug/Non Drug Allergy documented on EMR Reaction Allergy Type Onset Date Status morphine Morphine Unknown Drug Allergy Active Substance with sulfonamide structure and antibacterial mechanism of action (substance) Sulfa Antibiotics Unknown Drug Allergy Active Results Component Value Reference Range Flag Notes Presumptive Drug Test - Spec imen Type Urine Reviewed date:09/28/2024 12:15:45 PM Interpretation: Performing Lab: Notes/Report: Opiates Screen Positive 150 ng/mL ng/ml H Benzodiazepines Screen Positive 150 ng/mL ng/ml H Amphetamines Screen Negative 600 ng/mL ng/ml Cocaine Screen Negative 150 ng/mL ng/ml Methadone Screen Negative 150 ng/mL ng/ml 6-WALI Screen Negative 60 ng/mL ng/ml Methamphetamine Screen Negative 600 ng/mL ng/ml Fentanyl Screen Negative 9 ng/mL ng/ml Tricyclic Antidepressants Screen Negative 150 ng/mL ng/m l Buprenorphine Screen Negative 75 ng/mL ng/ml Cannabis Screen Negative 150 ng/mL ng/ml Full Confirmation - Specimen Type Urine Reviewed date:09/28/2024 12:15:45 PM Interpretation: Performing Lab: Notes/Report: 6-WALI Negative 20 ng/mL ng/mL 7-Aminoclonazepam Negative 50 ng/mL ng/mL a-Hydroxyalprazolam 193 50 ng/mL ng/mL H Alprazolam 274 50 ng/mL ng/mL H Amphetamine Negative 50 ng/mL ng/mL Benzoylecgonine Negative 50 ng/mL ng/mL Buprenorphine Negative 25 ng/mL ng/mL Carisoprodol Negative 50 ng/mL ng/mL Clonazepam Negative 50 ng/mL ng/mL Codeine Negative 50 ng/mL ng/mL Cyclobenzaprine Negative 50 ng/mL ng/mL Diazepam Negative 50 ng/mL ng/mL EDDP Negative 50 ng/mL ng/mL Fentanyl Negative 3 ng/mL ng/mL Gabapentin Negative 500 ng/mL ng/mL Hydrocodone >500 50 ng/mL ng/mL H Hydromorphone 243 50 ng/mL ng/mL H Lorazepam Negative 50 ng/mL ng/mL MDMA Negative 50 ng/mL ng/mL Meprobamate Negative 50 ng/mL ng/mL Methadone Negative 50 ng/mL ng/mL Methamphetamine Negative 200 ng/mL ng/mL Morphine Negative 50 ng/mL ng/mL Naloxone Negative 50 ng/mL ng/mL Naltrexone Negative 50 ng/mL ng/mL Norbuprenorphine Negative 25 ng/mL ng/mL Nordiazepam Negative 50 ng/mL ng/mL Norfentanyl Negative 10 ng/mL ng/mL Norpropoxyphene Negative 50 ng/mL ng/mL Oxazepam Negative 50 ng/mL ng/mL Oxycodone Negative 50 ng/mL ng/mL Oxymorphone Negative 50 ng/mL ng/mL Pregabalin Negative 200 ng/mL ng/mL Propoxyphene Negative 50 ng/mL ng/mL Tapentadol Negative 50 ng/mL ng/mL Temazepam Negative 50 ng/mL ng/mL Tramadol Negative 50 ng/mL ng/mL THC Negative 50 ng/mL ng/mL Amitriptyline Negative 50 ng/mL ng/mL Carboxyzolpidem Negative 100 ng/mL ng/mL Desmethyldoxepin Negative 50 ng/mL ng/mL Doxepin Negative 50 ng/mL ng/mL Imipramine Negative 50 ng/mL ng/mL Methylphenidate Negative 50 ng/mL ng/mL Nortriptyline Negative 50 ng/mL ng/mL o-Desmethyltramadol Negative 50 ng/mL ng/mL Ritalinic Acid Negative 50 ng/mL ng/mL Desalkylflurazepam Negative 50 ng/mL ng/mL Flunitrazepam Negative 50 ng/mL ng/mL Flurazepam Negative 50 ng/mL ng/mL Ketamine Negative 50 ng/mL ng/mL Meperidine Negative 50 ng/mL ng/mL Mitragynine Negative 50 ng/mL ng/mL Norhydrocodone 379 50 ng/mL ng/mL H Norketamine Negative 50 ng/mL ng/mL Normeperidine Negative 50 ng/mL ng/mL Noroxycodone Negative 50 ng/mL ng/mL PCP Negative 25 ng/mL ng/mL Phentermine Negative 50 ng/mL ng/mL Zaleplon Negative 20 ng/mL ng/mL Trazodone Negative 50 ng/mL ng/mL Presumptive Drug Test - Spec imen Type Urine Reviewed date:08/06/2024 09:34:12 AM Interpretation: Performing Lab: Notes/Report: Opiates Screen Positive 150 ng/mL ng/ml H Benzodiazepines Screen Positive 150 ng/mL ng/ml H Amphetamines Screen Negative 600 ng/mL ng/ml Cocaine Screen Negative 150 ng/mL ng/ml Methadone Screen Negative 150 ng/mL ng/ml 6-WALI Screen Negative 60 ng/mL ng/ml Methamphetamine Screen Negative 600 ng/mL ng/ml Fentanyl Screen Negative 9 ng/mL ng/ml Tricyclic Antidepressants Screen Negative 150 ng/mL ng/m l Buprenorphine Screen Negative 75 ng/mL ng/ml Cannabis Screen Negative 150 ng/mL ng/ml Full Confirmation - Specimen Type Urine Reviewed date:08/06/2024 09:34:12 AM Interpretation: Performing Lab: Notes/Report: 6-WALI Negative 20 ng/mL ng/mL 7-Aminoclonazepam Negative 50 ng/mL ng/mL a-Hydroxyalprazolam 411 50 ng/mL ng/mL H Alprazolam 379 50 ng/mL ng/mL H Amphetamine Negative 50 ng/mL ng/mL Benzoylecgonine Negative 50 ng/mL ng/mL Buprenorphine Negative 25 ng/mL ng/mL Carisoprodol Negative 50 ng/mL ng/mL Clonazepam Negative 50 ng/mL ng/mL Codeine Negative 50 ng/mL ng/mL Cyclobenzaprine Negative 50 ng/mL ng/mL Diazepam Negative 50 ng/mL ng/mL EDDP Negative 50 ng/mL ng/mL Fentanyl Negative 3 ng/mL ng/mL Gabapentin Negative 500 ng/mL ng/mL Hydrocodone >500 50 ng/mL ng/mL H Hydromorphone 473 50 ng/mL ng/mL H Lorazepam Negative 50 ng/mL ng/mL MDMA Negative 50 ng/mL ng/mL Meprobamate Negative 50 ng/mL ng/mL Methadone Negative 50 ng/mL ng/mL Methamphetamine Negative 200 ng/mL ng/mL Morphine Negative 50 ng/mL ng/mL Naloxone Negative 50 ng/mL ng/mL Naltrexone Negative 50 ng/mL ng/mL Norbuprenorphine Negative 25 ng/mL ng/mL Nordiazepam Negative 50 ng/mL ng/mL Norfentanyl Negative 10 ng/mL ng/mL Norpropoxyphene Negative 50 ng/mL ng/mL Oxazepam Negative 50 ng/mL ng/mL Oxycodone Negative 50 ng/mL ng/mL Oxymorphone Negative 50 ng/mL ng/mL Pregabalin Negative 200 ng/mL ng/mL Propoxyphene Negative 50 ng/mL ng/mL Tapentadol Negative 50 ng/mL ng/mL Temazepam Negative 50 ng/mL ng/mL Tramadol Negative 50 ng/mL ng/mL THC Negative 50 ng/mL ng/mL Amitriptyline Negative 50 ng/mL ng/mL Carboxyzolpidem Negative 100 ng/mL ng/mL Desmethyldoxepin Negative 50 ng/mL ng/mL Doxepin Negative 50 ng/mL ng/mL Imipramine Negative 50 ng/mL ng/mL Methylphenidate Negative 50 ng/mL ng/mL Nortriptyline Negative 50 ng/mL ng/mL o-Desmethyltramadol Negative 50 ng/mL ng/mL Ritalinic Acid Negative 50 ng/mL ng/mL Desalkylflurazepam Negative 50 ng/mL ng/mL Flunitrazepam Negative 50 ng/mL ng/mL Flurazepam Negative 50 ng/mL ng/mL Ketamine Negative 50 ng/mL ng/mL Meperidine Negative 50 ng/mL ng/mL Mitragynine Negative 50 ng/mL ng/mL Norhydrocodone 432 50 ng/mL ng/mL H Norketamine Negative 50 ng/mL ng/mL Normeperidine Negative 50 ng/mL ng/mL Noroxycodone Negative 50 ng/mL ng/mL PCP Negative 25 ng/mL ng/mL Phentermine Negative 50 ng/mL ng/mL Zaleplon Negative 20 ng/mL ng/mL Trazodone Negative 50 ng/mL ng/mL Presumptive Drug Test - Spec imen Type Urine Reviewed date:06/15/2024 12:28:04 PM Interpretation: Performing Lab: Notes/Report: Opiates Screen Positive 150 ng/mL ng/ml H Benzodiazepines Screen Positive 150 ng/mL ng/ml H Amphetamines Screen Negative 600 ng/mL ng/ml Cocaine Screen Negative 150 ng/mL ng/ml Methadone Screen Negative 150 ng/mL ng/ml 6-WALI Screen Negative 60 ng/mL ng/ml Methamphetamine Screen Negative 600 ng/mL ng/ml Fentanyl Screen Negative 9 ng/mL ng/ml Tricyclic Antidepressants Screen Negative 150 ng/mL ng/m l Buprenorphine Screen Negative 75 ng/mL ng/ml Cannabis Screen Negative 150 ng/mL ng/ml Full Confirmation - Specimen Type Urine Reviewed date:06/15/2024 12:28:04 PM Interpretation: Performing Lab: Notes/Report: 6-WALI Negative 20 ng/mL ng/mL 7-Aminoclonazepam Negative 50 ng/mL ng/mL a-Hydroxyalprazolam 371 50 ng/mL ng/mL H Alprazolam Negative 50 ng/mL ng/mL Amphetamine Negative 50 ng/mL ng/mL Benzoylecgonine Negative 50 ng/mL ng/mL Buprenorphine Negative 25 ng/mL ng/mL Carisoprodol Negative 50 ng/mL ng/mL Clonazepam Negative 50 ng/mL ng/mL Codeine Negative 50 ng/mL ng/mL Cyclobenzaprine Negative 50 ng/mL ng/mL Diazepam Negative 50 ng/mL ng/mL EDDP Negative 50 ng/mL ng/mL Fentanyl Negative 3 ng/mL ng/mL Gabapentin Negative 500 ng/mL ng/mL Hydrocodone >500 50 ng/mL ng/mL H Hydromorphone >500 50 ng/mL ng/mL H Lorazepam Negative 50 ng/mL ng/mL MDMA Negative 50 ng/mL ng/mL Meprobamate Negative 50 ng/mL ng/mL Methadone Negative 50 ng/mL ng/mL Methamphetamine Negative 200 ng/mL ng/mL Morphine Negative 50 ng/mL ng/mL Naloxone Negative 50 ng/mL ng/mL Naltrexone Negative 50 ng/mL ng/mL Norbuprenorphine Negative 25 ng/mL ng/mL Nordiazepam Negative 50 ng/mL ng/mL Norfentanyl Negative 10 ng/mL ng/mL Norpropoxyphene Negative 50 ng/mL ng/mL Oxazepam Negative 50 ng/mL ng/mL Oxycodone Negative 50 ng/mL ng/mL Oxymorphone Negative 50 ng/mL ng/mL Pregabalin Negative 200 ng/mL ng/mL Propoxyphene Negative 50 ng/mL ng/mL Tapentadol Negative 50 ng/mL ng/mL Temazepam Negative 50 ng/mL ng/mL Tramadol Negative 50 ng/mL ng/mL THC Negative 50 ng/mL ng/mL Amitriptyline Negative 50 ng/mL ng/mL Carboxyzolpidem Negative 100 ng/mL ng/mL Desmethyldoxepin Negative 50 ng/mL ng/mL Doxepin Negative 50 ng/mL ng/mL Imipramine Negative 50 ng/mL ng/mL Methylphenidate Negative 50 ng/mL ng/mL Nortriptyline Negative 50 ng/mL ng/mL o-Desmethyltramadol Negative 50 ng/mL ng/mL Ritalinic Acid Negative 50 ng/mL ng/mL Desalkylflurazepam Negative 50 ng/mL ng/mL Flunitrazepam Negative 50 ng/mL ng/mL Flurazepam Negative 50 ng/mL ng/mL Ketamine Negative 50 ng/mL ng/mL Meperidine Negative 50 ng/mL ng/mL Mitragynine Negative 50 ng/mL ng/mL Norhydrocodone >500 50 ng/mL ng/mL H Norketamine Negative 50 ng/mL ng/mL Normeperidine Negative 50 ng/mL ng/mL Noroxycodone Negative 50 ng/mL ng/mL PCP Negative 25 ng/mL ng/mL Phentermine Negative 50 ng/mL ng/mL Zaleplon Negative 20 ng/mL ng/mL Trazodone Negative 50 ng/mL ng/mL Urine Drug Screen Reviewed date:01/17/2024 11:03:13 AM Interpretation: Performing Lab: Notes/Report: Reason For Referral No Information Medications Medication SIG (Take, Route, Frequency, Duration) Notes Start Date End Date Status Naproxen 500 MG Tablet 1 tablet with food or milk as needed Orally every 12 hrs; Duration: 28 days As needed 09/22/2024 Active Gabapentin 300 MG Capsule 1 capsule Oral ly three times a day; Duration: 28 days 09/22/2024 Active HYDROcodone-Acetaminophen 10-325 MG Tablet 1 tablet as needed for pain Orally five times a day; Duration: 28 days 09/22/2024 Active Problems Problem Type SNOMED Code ICD Code Onset Dates Problem Status W/U Status Risk Notes Problem Chronic pain (85048604) Other chronic pain (G89.29) Active confirmed Problem Chronic pain syndrome (368062960) Chronic pain syndrome (G89.4) Active confirmed Problem Pain of left hip joint (finding) (104454966889492) Pain in left hip (M25.552) Active confirmed Problem Pain of left knee joint (finding) (620989178915824) Pain in left knee (M25.562) Active confirmed Problem Lumbar radiculopathy (643815572) Radiculopathy, lumbar region (M54.16) Active confirmed Problem Cervicalgia (77947158) Cervicalgia (M54.2) Active confirmed Problem High risk drug monitoring status (121729620) longterm (current) use of opiate analgesic (Z79.891) Active confirmed Problem Shoulder joint pain (671723737) Pain, joint, shoulder, left (M25.512) Active confirmed Problem Disorder of musculoskeletal system (751550) Weakness of left lower extremity (R29.898) Active confirmed Problem Postprocedural states (656291349) Previous back surgery (Z98.890) Active confirmed Vital Signs Heart Rate 76 /min 09/22/2024 Respiratory Rate 19 /min 09/22/2024 Blood pressure diastolic 65 mm Hg 09/22/2024 Oximetry 96 % 09/22/2024 Height-cm 177.8 cm 09/22/2024 Weight-kg 86.18 kg 09/22/2024 Height 70 in 09/22/2024 Blood pressure systolic 135 mm Hg 09/22/2024 Weight 190 lbs 09/22/2024 BMI 27.26 kg/m2 09/22/2024 Encounters Encounter Location Date Provider Diagnosis [facility] [address] [place] [address] 10/25/2023 Hira Holden Lumbar trigger point syndrome M54.59 ; Lumbar radicular pain M54.16 and Chronic pain syndrome G89.4 [facility] [address] [place] [address] 11/22/2023 Chace Betts Chronic pain syndrome G89.4 ; longterm (current) use of opiate analgesic Z79.891 ; Pain, joint, shoulder, left M25.512 and Radiculopathy, lumbar region M54.16 [facility] [address] [place] [address] 12/20/2023 Leonora Kern Chronic pain syndrome G89.4 ; intermediate accountant (current) use of opiate analgesic Z79.891 ; Pain, joint, shoulder, left M25.512 ; Radiculopathy, lumbar region M54.16 and Previous back surgery Z98.890 [facility] [address] [place] [address] 01/17/2024 Yanna Ed Chronic pain syndrome G89.4 ; longterm (current) use of opiate analgesic Z79.891 ; Pain, joint, shoulder, left M25.512 ; Radiculopathy, lumbar region M54.16 and Previous back surgery Z98.890 [facility] [address] [place] [address] 02/12/2024 Leonora Kern Chronic pain syndrome G89.4 ; longterm (current) use of opiate analgesic Z79.891 ; Pain, joint, shoulder, left M25.512 ; Radiculopathy, lumbar region M54.16 and Previous back surgery Z98.890 [facility] [address] [place] [address] 03/12/2024 Marcelina Jorge Chronic pain syndrome G89.4 ; intermediate accountant (current) use of opiate analgesic Z79.891 ; Pain, joint, shoulder, left M25.512 ; Radiculopathy, lumbar region M54.16 and Previous back surgery Z98.890 [facility] [address] [place] [address] 04/09/2024 Chace Betts Chronic pain syndrome G89.4 ; longterm (current) use of opiate analgesic Z79.891 ; Radiculopathy, lumbar region M54.16 ; Pain, joint, shoulder, left M25.512 ; Previous back surgery Z98.890 ; Cervicalgia M54.2 ; Other chronic pain G89.29 ; Pain in left hip M25.552 ; Pain in left knee M25.562 and Weakness of left lower extremity R29.898 [facility] [place] [address] [place] [address] 04/09/2024 Chace Betts longterm (current) use of opiate analgesic Z79.891 and longterm use of drug Z79.899 [facility] [address] [facility] [place] [address] 05/07/2024 Marcelina Patel Radiculopathy, lumbar region M54.16 ; Pain, joint, shoulder, left M25.512 ; Cervicalgia M54.2 ; Previous back surgery Z98.890 ; Pain in left hip M25.552 ; Pain in left knee M25.562 ; Weakness of left lower extremity R29.898 ; Chronic pain syndrome G89.4 and intermediate accountant (current) use of opiate analgesic Z79.891 [facility] [address] [facility] [place] [place] [address] 06/04/2024 Yanna Ward Chronic pain syndrome G89.4 ; longterm (current) use of opiate analgesic Z79.891 ; Radiculopathy, lumbar region M54.16 ; Pain, joint, shoulder, left M25.512 ; Previous back surgery Z98.890 ; Cervicalgia M54.2 ; Other chronic pain G89.29 ; Pain in left hip M25.552 ; Pain in left knee M25.562 and Weakness of left lower extremity R29.898 [facility] [place] [address] [facility] [place] [address] 06/04/2024 Yanna Ward intermediate accountant (current) use of opiate analgesic Z79.891 and intermediate accountant use of drug Z79.899 [facility] [address] [facility] [place] [address] 07/02/2024 Yanna Ward Chronic pain syndrome G89.4 ; intermediate accountant (current) use of opiate analgesic Z79.891 ; Radiculopathy, lumbar region M54.16 ; Pain, joint, shoulder, left M25.512 ; Previous back surgery Z98.890 ; Cervicalgia M54.2 ; Other chronic pain G89.29 ; Pain in left hip M25.552 ; Pain in left knee M25.562 and Weakness of left lower extremity R29.898 [facility] [address] [facility] [place] [address] 07/30/2024 Yanna Ward Chronic pain syndrome G89.4 ; longterm (current) use of opiate analgesic Z79.891 ; Radiculopathy, lumbar region M54.16 ; Pain, joint, shoulder, left M25.512 ; Previous back surgery Z98.890 ; Cervicalgia M54.2 ; Other chronic pain G89.29 ; Pain in left hip M25.552 ; Pain in left knee M25.562 and Weakness of left lower extremity R29.898 [facility] [address] [place] [address] 07/30/2024 Yanna Ward intermediate accountant (current) use of opiate analgesic Z79.891 and intermediate accountant use of drug Z79.899 [facility] [address] [facility] [place] [place] [address] 2024 Yanna Ward Chronic pain syndrome G89.4 ; longterm (current) use of opiate analgesic Z79.891 ; Radiculopathy, lumbar region M54.16 ; Pain, joint, shoulder, left M25.512 ; Previous back surgery Z98.890 ; Cervicalgia M54.2 ; Other chronic pain G89.29 ; Pain in left hip M25.552 ; Pain in left knee M25.562 and Weakness of left lower extremity R29.898 [facility] [address] [facility] [place] [place] [address] 09/22/2024 Yanna Ward Chronic pain syndrome G89.4 ; longterm (current) use of opiate analgesic Z79.891 ; Radiculopathy, lumbar region M54.16 ; Pain, joint, shoulder, left M25.512 ; Previous back surgery Z98.890 ; Cervicalgia M54.2 ; Other chronic pain G89.29 ; Pain in left hip M25.552 ; Pain in left knee M25.562 and Weakness of left lower extremity R29.898 [facility] [address] [place], [place] [address] 09/22/2024 Yanna Ward intermediate accountant (current) use of opiate analgesic Z79.891 and intermediate accountant use of drug Z79.899 [facility] [address] [place] [address] 10/25/2023 Aj Stone [facility] [address] [place] [address] 10/26/2023 Hira Holden [facility] [address] [place] [address] 12/20/2023 Chace Essmyer Chronic pain syndrome G89.4 [facility] [address] [place] [address] 01/17/2024 Chace Essmyer Chronic pain syndrome G89.4 [facility] [address] [place] [address] 02/12/2024 Chace Essmyer Chronic pain syndrome G89.4 [facility] [address] [place] [address] 03/12/2024 Chace Essmyer Chronic pain syndrome G89.4 [facility] [address] [place] [address] 04/09/2024 Chace Essmyer Chronic pain syndrome G89.4 [facility] [address] [place] [address] 05/07/2024 Chace Essmyer Chronic pain syndrome G89.4 [facility] [address] [place] [address] 06/04/2024 Chace Essmyer Chronic pain syndrome G89.4 [facility] [address] [place] [address] 07/02/2024 Chace Essmyer Chronic pain syndrome G89.4 [facility] [address] [place] [address] 07/30/2024 Chace Essmyer Chronic pain syndrome G89.4 [facility] [address] [place] [address] 2024 Chace Betts Chronic pain syndrome G89.4 [facility] [address] [place] [address] 09/22/2024 Chace Betts Chronic pain syndrome G89.4 Assessments Encounter Date Diagnosis (ICD Code) Assessment Notes Treatment Notes Treatment Clinical Notes Section Notes 10/25/2023 Lumbar radicular pain (ICD-10 - M54.16) 10/25/2023 Lumbar trigger point syndrome (ICD-10 - M54.59) 11/22/2023 Chronic pain syndrome (ICD-10 - G89.4) PATIENT REPORTS IMAGING DONE AT [facility] [place], WILL REQUEST RECORDS. 11/22/2023 intermediate accountant (current) use of opiate analgesic (ICD-10 - Z79.891) 12/20/2023 Chronic pain syndrome (ICD-10 - G89.4) PATIENT REPORTS IMAGING DONE IN THE LAST YEAR AT [facility] IN [place], WILL REQUEST RECORDS. 12/20/2023 intermediate accountant (current) use of opiate analgesic (ICD-10 - Z79.891) 12/20/2023 Chronic pain syndrome (ICD-10 - G89.4) 01/17/2024 Chronic pain syndrome (ICD-10 - G89.4) PATIENT REPORTS IMAGING DONE IN THE LAST YEAR AT [facility] [place], WILL REQUEST RECORDS. 02/12/2024 Chronic pain syndrome (ICD-10 - G89.4) 03/12/2024 Chronic pain syndrome (ICD-10 - G89.4) 03/12/2024 Chronic pain syndrome (ICD-10 - G89.4) PATIENT REPORTS IMAGING DONE IN THE LAST YEAR AT [facility] [place], STILL WAITING ON REQUESTED RECORDS. 04/09/2024 Chronic pain syndrome (ICD-10 - G89.4) 04/09/2024 longterm (current) use of opiate analgesic (ICD-10 - Z79.891) 04/09/2024 Chronic pain syndrome (ICD-10 - G89.4) 06/04/2024 Chronic pain syndrome (ICD-10 - G89.4) 07/02/2024 Chronic pain syndrome (ICD-10 - G89.4) 07/02/2024 Chronic pain syndrome (ICD-10 - G89.4) 07/30/2024 Chronic pain syndrome (ICD-10 - G89.4) 07/30/2024 longterm (current) use of opiate analgesic (ICD-10 - Z79.891) 2024 Chronic pain syndrome (ICD-10 - G89.4) 2024 Chronic pain syndrome (ICD-10 - G89.4) 09/22/2024 intermediate accountant (current) use of opiate analgesic (ICD-10 - Z79.891) 09/22/2024 Chronic pain syndrome (ICD-10 - G89.4) 09/22/2024 Chronic pain syndrome (ICD-10 - G89.4) 07/30/2024 Chronic pain syndrome (ICD-10 - G89.4) 06/04/2024 Chronic pain syndrome (ICD-10 - G89.4) 06/04/2024 longterm (current) use of opiate analgesic (ICD-10 - Z79.891) 05/07/2024 Chronic pain syndrome (ICD-10 - G89.4) 04/09/2024 intermediate accountant (current) use of opiate analgesic (ICD-10 - Z79.891) 02/12/2024 Chronic pain syndrome (ICD-10 - G89.4) PATIENT REPORTS IMAGING DONE IN THE LAST YEAR AT [facility] IN [place], STILL WAITING ON REQUESTED RECORDS. 01/17/2024 Chronic pain syndrome (ICD-10 - G89.4) 05/07/2024 Radiculopathy, lumbar region (ICD-10 - M54.16) 05/07/2024 Pain, joint, shoulder, left (ICD-10 - M25.512) 05/07/2024 Cervicalgia (ICD-10 - M54.2) 02/12/2024 longterm (current) use of opiate analgesic (ICD-10 - Z79.891) 04/09/2024 intermediate accountant use of drug (ICD-10 - Z79.899) 06/04/2024 longterm use of drug (ICD-10 - Z79.899) 06/04/2024 intermediate accountant (current) use of opiate analgesic (ICD-10 - Z79.891) 09/22/2024 intermediate accountant (current) use of opiate analgesic (ICD-10 - Z79.891) 09/22/2024 intermediate accountant use of drug (ICD-10 - Z79.899) 07/30/2024 longterm use of drug (ICD-10 - Z79.899) 2024 longterm (current) use of opiate analgesic (ICD-10 - Z79.891) 07/30/2024 intermediate accountant (current) use of opiate analgesic (ICD-10 - Z79.891) 07/02/2024 intermediate accountant (current) use of opiate analgesic (ICD-10 - Z79.891) 10/25/2023 Chronic pain syndrome (ICD-10 - G89.4) 04/09/2024 Radiculopathy, lumbar region (ICD-10 - M54.16) 01/17/2024 longterm (current) use of opiate analgesic (ICD-10 - Z79.891) 03/12/2024 longterm (current) use of opiate analgesic (ICD-10 - Z79.891) 12/20/2023 Pain, joint, shoulder, left (ICD-10 - M25.512) PATIENT REPORTS IMAGING DONE IN THE LAST YEAR AT [facility] [facility], WILL REQUEST RECORDS. 11/22/2023 Pain, joint, shoulder, left (ICD-10 - M25.512) 12/20/2023 Radiculopathy, lumbar region (ICD-10 - M54.16) PATIENT REPORTS IMAGING DONE IN THE LAST YEAR AT [facility] [place] [place] [place], WILL REQUEST RECORDS. 11/22/2023 Radiculopathy, lumbar region (ICD-10 - M54.16) 03/12/2024 Pain, joint, shoulder, left (ICD-10 - M25.512) PATIENT REPORTS IMAGING DONE IN THE LAST YEAR AT [facility] [place], STILL WAITING ON REQUESTED RECORDS. 01/17/2024 Pain, joint, shoulder, left (ICD-10 - M25.512) PATIENT REPORTS IMAGING DONE IN THE LAST YEAR AT [facility] [place] [place], WILL REQUEST RECORDS. 04/09/2024 Pain, joint, shoulder, left (ICD-10 - M25.512) 07/02/2024 Radiculopathy, lumbar region (ICD-10 - M54.16) 07/30/2024 Radiculopathy, lumbar region (ICD-10 - M54.16) 2024 Radiculopathy, lumbar region (ICD-10 - M54.16) 09/22/2024 Radiculopathy, lumbar region (ICD-10 - M54.16) 06/04/2024 Radiculopathy, lumbar region (ICD-10 - M54.16) 02/12/2024 Pain, joint, shoulder, left (ICD-10 - M25.512) PATIENT REPORTS IMAGING DONE IN THE LAST YEAR AT [facility] [place], STILL WAITING ON REQUESTED RECORDS. 05/07/2024 Previous back surgery (ICD-10 - Z98.890) 02/12/2024 Radiculopathy, lumbar region (ICD-10 - M54.16) PATIENT REPORTS IMAGING DONE IN THE LAST YEAR AT [facility], STILL WAITING ON REQUESTED RECORDS. 05/07/2024 Pain in left hip (ICD-10 - M25.552) 06/04/2024 Pain, joint, shoulder, left (ICD-10 - M25.512) 09/22/2024 Pain, joint, shoulder, left (ICD-10 - M25.512) 2024 Pain, joint, shoulder, left (ICD-10 - M25.512) 07/30/2024 Pain, joint, shoulder, left (ICD-10 - M25.512) 07/02/2024 Pain, joint, shoulder, left (ICD-10 - M25.512) 04/09/2024 Previous back surgery (ICD-10 - Z98.890) 12/20/2023 Previous back surgery (ICD-10 - Z98.890) 01/17/2024 Radiculopathy, lumbar region (ICD-10 - M54.16) PATIENT REPORTS IMAGING DONE IN THE LAST YEAR AT [facility] IN [place], WILL REQUEST RECORDS. 03/12/2024 Radiculopathy, lumbar region (ICD-10 - M54.16) PATIENT REPORTS IMAGING DONE IN THE LAST YEAR AT [facility], STILL WAITING ON REQUESTED RECORDS. 04/09/2024 Cervicalgia (ICD-10 - M54.2) 01/17/2024 Previous back surgery (ICD-10 - Z98.890) 03/12/2024 Previous back surgery (ICD-10 - Z98.890) 07/02/2024 Previous back surgery (ICD-10 - Z98.890) 07/30/2024 Previous back surgery (ICD-10 - Z98.890) 2024 Previous back surgery (ICD-10 - Z98.890) 09/22/2024 Previous back surgery (ICD-10 - Z98.890) 05/07/2024 Pain in left knee (ICD-10 - M25.562) 02/12/2024 Previous back surgery (ICD-10 - Z98.890) 06/04/2024 Previous back surgery (ICD-10 - Z98.890) 05/07/2024 Weakness of left lower extremity (ICD-10 - R29.898) 06/04/2024 Cervicalgia (ICD-10 - M54.2) 07/30/2024 Cervicalgia (ICD-10 - M54.2) 07/02/2024 Cervicalgia (ICD-10 - M54.2) 2024 Cervicalgia (ICD-10 - M54.2) 09/22/2024 Cervicalgia (ICD-10 - M54.2) 04/09/2024 Other chronic pain (ICD-10 - G89.29) 04/09/2024 Pain in left hip (ICD-10 - M25.552) 07/02/2024 Other chronic pain (ICD-10 - G89.29) 09/22/2024 Other chronic pain (ICD-10 - G89.29) 2024 Other chronic pain (ICD-10 - G89.29) 07/30/2024 Other chronic pain (ICD-10 - G89.29) 06/04/2024 Other chronic pain (ICD-10 - G89.29) 05/07/2024 Chronic pain syndrome (ICD-10 - G89.4) Telemedicine visit completed d/t unsafe weather/road conditions. Due to the nature of telemedicine, the ability to do physical assessment was limited to what can be accomplished by patient directed telehealth visit based on instruction. Those limits are understood by the patient and myself. Impression is based on history, available information, and physical findings accomplished with telehealth visit. Verbal consent was given for telemedicine visit. 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 (ICD-10 - Z79.891) 06/04/2024 Pain in left hip (ICD-10 - M25.552) 07/02/2024 Pain in left hip (ICD-10 - M25.552) 07/30/2024 Pain in left hip (ICD-10 - M25.552) 2024 Pain in left hip (ICD-10 - M25.552) 09/22/2024 Pain in left hip (ICD-10 - M25.552) 04/09/2024 Pain in left knee (ICD-10 - M25.562) 04/09/2024 Weakness of left lower extremity (ICD-10 - R29.898) 09/22/2024 Pain in left knee (ICD-10 - M25.562) 2024 Pain in left knee (ICD-10 - M25.562) 07/30/2024 Pain in left knee (ICD-10 - M25.562) 07/02/2024 Pain in left knee (ICD-10 - M25.562) 06/04/2024 Pain in left knee (ICD-10 - M25.562) 09/22/2024 Weakness of left lower extremity (ICD-10 - R29.898) 06/04/2024 Weakness of left lower extremity (ICD-10 - R29.898) 07/02/2024 Weakness of left lower extremity (ICD-10 - R29.898) 07/30/2024 Weakness of left lower extremity (ICD-10 - R29.898) 2024 Weakness of left lower extremity (ICD-10 - R29.898) 11/22/2023 Other During the patient's visit today, we discussed their chronic pain, including the onset, duration, aggravating and relieving factors, nature of the pain, and their pain scale. We attempted to identify how the pain affected the patient's daily activities, mobility, mood, sleep, and relationships. We discussed both the long and short-term goals for pain management. We discussed the current medications including the dose, effectiveness, and potential side effects. Non-opioid therapies were considered, including NSAIDs and other adjuvant medications. We discussed the importance of exercise and recommended tailored exercises for the patient. We discussed physical therapy and potential referral to a physical therapist, if appropriate. We discussed the risks/benefits of alternative treatments such as acupuncture, life care planner, massage, and biofeedback. We discussed behavioral health and coping strategies. If applicable, we performed a PHQ-9 and KALEIGH-7 with the patient. If the patient scored as having anxiety or depression, they were given education on the diagnosis. We discussed the importance of addressing any mental health concerns as mental health disorders are a common comorbidity of chronic pain. We discussed techniques to reduce stress and promote relaxation. If applicable, the patient was offered a referral to behavioral health. We discussed lifestyle modifications, including getting appropriate sleep, eating a healthy diet, and striving to control their weight. We discussed avoiding activities that exacerbate their pain. We discussed that we would reassess their pain scale and adjust their care plan as needed during future visits. 12/20/2023 Other During the patient's visit today, we discussed their chronic pain, including the onset, duration, aggravating and relieving factors, nature of the pain, and their pain scale. We attempted to identify how the pain affected the patient's daily activities, mobility, mood, sleep, and relationships. We discussed both the long and short-term goals for pain management. We discussed the current medications including the dose, effectiveness, and potential side effects. Non-opioid therapies were considered, including NSAIDs and other adjuvant medications. We discussed the importance of exercise and recommended tailored exercises for the patient. We discussed physical therapy and potential referral to a physical therapist, if appropriate. We discussed the risks/benefits of alternative treatments such as acupuncture, life care planner, massage, and biofeedback. We discussed behavioral health and coping strategies. If applicable, we performed a PHQ-9 and KALEIGH-7 with the patient. If the patient scored as having anxiety or depression, they were given education on the diagnosis. We discussed the importance of addressing any mental health concerns as mental health disorders are a common comorbidity of chronic pain. We discussed techniques to reduce stress and promote relaxation. If applicable, the patient was offered a referral to behavioral health. We discussed lifestyle modifications, including getting appropriate sleep, eating a healthy diet, and striving to control their weight. We discussed avoiding activities that exacerbate their pain. We discussed that we would reassess their pain scale and adjust their care plan as needed during future visits. 01/17/2024 Other During the patient's visit today, we discussed their chronic pain, including the onset, duration, aggravating and relieving factors, nature of the pain, and their pain scale. We attempted to identify how the pain affected the patient's daily activities, mobility, mood, sleep, and relationships. We discussed both the long and short-term goals for pain management. We discussed the current medications including the dose, effectiveness, and potential side effects. Non-opioid therapies were considered, including NSAIDs and other adjuvant medications. We discussed the importance of exercise and recommended tailored exercises for the patient. We discussed physical therapy and potential referral to a physical therapist, if appropriate. We discussed the risks/benefits of alternative treatments such as acupuncture, life care planner, massage, and biofeedback. We discussed behavioral health and coping strategies. If applicable, we performed a PHQ-9 and KALEIGH-7 with the patient. If the patient scored as having anxiety or depression, they were given education on the diagnosis. We discussed the importance of addressing any mental health concerns as mental health disorders are a common comorbidity of chronic pain. We discussed techniques to reduce stress and promote relaxation. If applicable, the patient was offered a referral to behavioral health. We discussed lifestyle modifications, including getting appropriate sleep, eating a healthy diet, and striving to control their weight. We discussed avoiding activities that exacerbate their pain. We discussed that we would reassess their pain scale and adjust their care plan as needed during future visits. 02/12/2024 Other Notes: Will continue medications as previously prescribed. Patient reports medicaiton effective. Narcotic and controlled medicaiton prescription signed per Dr. Betts. 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 addiction, oversedation, respiratory depression and even by overdose). During the patient's visit today, we discussed their chronic pain, including the onset, duration, aggravating and relieving factors, nature of the pain, and their pain scale. We attempted to identify how the pain affected the patient's daily activities, mobility, mood, sleep, and relationships. We discussed both the long and short-term goals for pain management.We discussed the current medications including the dose, effectiveness, and potential side effects. Non-opioid therapies were considered, including NSAIDs and other adjuvant medications.We discussed the importance of exercise and recommended tailored exercises for the patient. We discussed physical therapy and potential referral to a physical therapist, if appropriate.We discussed the risks/benefits of alternative treatments such as acupuncture, life care planner, massage, and biofeedback.We discussed behavioral health and coping strategies. If applicable, we performed a PHQ-9 and KALEIGH-7 with the patient. If the patient scored as having anxiety or depression, they were given education on the diagnosis. We discussed the importance of addressing any mental health concerns as mental health disorders are a common comorbidity of chronic pain. We discussed techniques to reduce stress and promote relaxation. If applicable, the patient was offered a referral to behavioral health.We discussed lifestyle modifications, including getting appropriate sleep, eating a healthy diet, and striving to control their weight. We discussed avoiding activities that exacerbate their pain.We discussed that we would reassess their pain scale and adjust their care plan as needed during future visits.Discussed all the risks, side effects, and drug interaction for longer term use of narcotics. The patient understandins and aware regarding all the risks involved. Discussed overdose prevention paln including Narcan. Chronic Opioid management - Patient continues to deny signs or symptoms of addiction, denies constipation. Continue medications as prescribed. 03/12/2024 Other Will continue all medication as previously prescribed, as patient reports effective. Narcotic prescription signed per Dr. Betts. Patient denies any side effects, states regimen is helping. Discussed the long distance billing operator risk (ie. 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 The patient is not to drive or operate heavy equipment until knows how the medication will make them feel. Also discussed with the patient the new CDC guidelines regarding benzodiazepines and opiates. The fact that the CDC does not recommend taking both of these medications on an on-going basis. If the medication is prescribed b another physician we strongly discourage this practice. Should the patient continue to take benzodiazepines and opiates together despite the warning it is at their own risk. During the patient's visit today, we discussed their chronic pain, including the onset, duration, aggravating and relieving factors, nature of the pain, and their pain scale. We attempted to identify how the pain affected the patient's daily activities, mobility, mood, sleep, and relationships. We discussed both the long and short-term goals for pain management.We discussed the current medications including the dose, effectiveness, and potential side effects. Non-opioid therapies were considered, including NSAIDs and other adjuvant medications.We discussed the importance of exercise and recommended tailored exercises for the patient. We discussed physical therapy and potential referral to a physical therapist, if appropriate.We discussed the risks/benefits of alternative treatments such as acupuncture, life care planner, massage, and biofeedback.We discussed behavioral health and coping strategies. If applicable, we performed a PHQ-9 and KALEIGH-7 with the patient. If the patient scored as having anxiety or depression, they were given education on the diagnosis. We discussed the importance of addressing any mental health concerns as mental health disorders are a common comorbidity of chronic pain. We discussed techniques to reduce stress and promote relaxation. If applicable, the patient was offered a referral to behavioral health.We discussed lifestyle modifications, including getting appropriate sleep, eating a healthy diet, and striving to control their weight. We discussed avoiding activities that exacerbate their pain.We discussed that we would reassess their pain scale and adjust their care plan as needed during future visits.Discussed all the risk, side effects, and drug interactions for long distance billing operator use of narcotics. The patient understands and is aware regarding all the risk involved. Also discussed overdose prevention plan including Narcan. 04/09/2024 Other During the patient's visit today, we discussed their chronic pain, including the onset, duration, aggravating and relieving factors, nature of the pain, and their pain scale. We attempted to identify how the pain affected the patient's daily activities, mobility, mood, sleep, and relationships. We discussed both the long and short-term goals for pain management. We discussed the current medications including the dose, effectiveness, and potential side effects. Non-opioid therapies were considered, including NSAIDs and other adjuvant medications. We discussed the importance of exercise and recommended tailored exercises for the patient. We discussed physical therapy and potential referral to a physical therapist, if appropriate. We discussed the risks/benefits of alternative treatments such as acupuncture, life care planner, massage, and biofeedback. We discussed behavioral health and coping strategies. If applicable, we performed a PHQ-9 and KALEIGH-7 with the patient. If the patient scored as having anxiety or depression, they were given education on the diagnosis. We discussed the importance of addressing any mental health concerns as mental health disorders are a common comorbidity of chronic pain. We discussed techniques to reduce stress and promote relaxation. If applicable, the patient was offered a referral to behavioral health. We discussed lifestyle modifications, including getting appropriate sleep, eating a healthy diet, and striving to control their weight. We discussed avoiding activities that exacerbate their pain. We discussed that we would reassess their pain scale and adjust their care plan as needed during future visits. 05/07/2024 Other Will continue all medication as previously prescribed, as patient reports effective. Narcotic prescription signed per Dr. Betts. Patient denies any side effects, states regimen is helping. Discussed the long-term risk (ie. Addiction, oversedation, respiratory depression, and even dealth by overdose) The patient has pathology and justification for chronic use of narcotics. 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 The patient is not to drive or operate heavy equipment until knows how the medication will make them feel. Also discussed with the patient the new CDC guidelines regarding benzodiazepines and opiates. The fact that the CDC does not recommend taking both of these medications on an on-going basis. If the medication is prescribed b another physician we strongly discourage this practice. Should the patient continue to take benzodiazepines and opiates together despite the warning it is at their own risk. During the patient's visit today, we discussed their chronic pain, including the onset, duration, aggravating and relieving factors, nature of the pain, and their pain scale. We attempted to identify how the pain affected the patient's daily activities, mobility, mood, sleep, and relationships. We discussed both the long and short-term goals for pain management. We discussed the current medications including the dose, effectiveness, and potential side effects. Non-opioid therapies were considered, including NSAIDs and other adjuvant medications. We discussed the importance of exercise and recommended tailored exercises for the patient. We discussed physical therapy and potential referral to a physical therapist, if appropriate. We discussed the risks/benefits of alternative treatments such as acupuncture, life care planner, massage, and biofeedback. We discussed behavioral health and coping strategies. If applicable, we performed a PHQ-9 and KALEIGH-7 with the patient. If the patient scored as having anxiety or depression, they were given education on the diagnosis. We discussed the importance of addressing any mental health concerns as mental health disorders are a common comorbidity of chronic pain. We discussed techniques to reduce stress and promote relaxation. If applicable, the patient was offered a referral to behavioral health. We discussed lifestyle modifications, including getting appropriate sleep, eating a healthy diet, and striving to control their weight. We discussed avoiding activities that exacerbate their pain. We discussed that we would reassess their pain scale and adjust their care plan as needed during future visits. Discussed all the risk, side effects, and drug interactions for long distance billing operator use of narcotics. The patient understands and is aware regarding all the risk involved. Also discussed overdose prevention plan including Narcan 06/04/2024 Other During the patient's visit today, we discussed their chronic pain, including the onset, duration, aggravating and relieving factors, nature of the pain, and their pain scale. We attempted to identify how the pain affected the patient's daily activities, mobility, mood, sleep, and relationships. We discussed both the long and short-term goals for pain management. We discussed the current medications including the dose, effectiveness, and potential side effects. Non-opioid therapies were considered, including NSAIDs and other adjuvant medications. We discussed the importance of exercise and recommended tailored exercises for the patient. We discussed physical therapy and potential referral to a physical therapist, if appropriate. We discussed the risks/benefits of alternative treatments such as acupuncture, life care planner, massage, and biofeedback. We discussed behavioral health and coping strategies. If applicable, we performed a PHQ-9 and KALEIGH-7 with the patient. If the patient scored as having anxiety or depression, they were given education on the diagnosis. We discussed the importance of addressing any mental health concerns as mental health disorders are a common comorbidity of chronic pain. We discussed techniques to reduce stress and promote relaxation. If applicable, the patient was offered a referral to behavioral health. We discussed lifestyle modifications, including getting appropriate sleep, eating a healthy diet, and striving to control their weight. We discussed avoiding activities that exacerbate their pain. We discussed that we would reassess their pain scale and adjust their care plan as needed during future visits. The patient is engaged in a longitudinal care relationship for the ongoing management of complex chronic conditions, including Chronic Pain Syndrome and long-term opioid analgesic use, along with other chronic pain conditions outlined in the assessment. The treatment plan involves continuous monitoring that includes random urine drug screens, routine imaging, coordination of care, and a multidisciplinary approach, which has been discussed with the patient and will be followed accordingly. 07/02/2024 Other During the patient's visit today, we discussed their chronic pain, including the onset, duration, aggravating and relieving factors, nature of the pain, and their pain scale. We attempted to identify how the pain affected the patient's daily activities, mobility, mood, sleep, and relationships. We discussed both the long and short-term goals for pain management. We discussed the current medications including the dose, effectiveness, and potential side effects. Non-opioid therapies were considered, including NSAIDs and other adjuvant medications. We discussed the importance of exercise and recommended tailored exercises for the patient. We discussed physical therapy and potential referral to a physical therapist, if appropriate. We discussed the risks/benefits of alternative treatments such as acupuncture, life care planner, massage, and biofeedback. We discussed behavioral health and coping strategies. If applicable, we performed a PHQ-9 and KALEIGH-7 with the patient. If the patient scored as having anxiety or depression, they were given education on the diagnosis. We discussed the importance of addressing any mental health concerns as mental health disorders are a common comorbidity of chronic pain. We discussed techniques to reduce stress and promote relaxation. If applicable, the patient was offered a referral to behavioral health. We discussed lifestyle modifications, including getting appropriate sleep, eating a healthy diet, and striving to control their weight. We discussed avoiding activities that exacerbate their pain. We discussed that we would reassess their pain scale and adjust their care plan as needed during future visits. The patient is engaged in a longitudinal care relationship for the ongoing management of complex chronic conditions, including Chronic Pain Syndrome and long-term opioid analgesic use, along with other chronic pain conditions outlined in the assessment. The treatment plan involves continuous monitoring that includes random urine drug screens, routine imaging, coordination of care, and a multidisciplinary approach, which has been discussed with the patient and will be followed accordingly. 07/30/2024 Other During the patient's visit today, we discussed their chronic pain, including the onset, duration, aggravating and relieving factors, nature of the pain, and their pain scale. We attempted to identify how the pain affected the patient's daily activities, mobility, mood, sleep, and relationships. We discussed both the long and short-term goals for pain management. We discussed the current medications including the dose, effectiveness, and potential side effects. Non-opioid therapies were considered, including NSAIDs and other adjuvant medications. We discussed the importance of exercise and recommended tailored exercises for the patient. We discussed physical therapy and potential referral to a physical therapist, if appropriate. We discussed the risks/benefits of alternative treatments such as acupuncture, life care planner, massage, and biofeedback. We discussed behavioral health and coping strategies. If applicable, we performed a PHQ-9 and KALEIGH-7 with the patient. If the patient scored as having anxiety or depression, they were given education on the diagnosis. We discussed the importance of addressing any mental health concerns as mental health disorders are a common comorbidity of chronic pain. We discussed techniques to reduce stress and promote relaxation. If applicable, the patient was offered a referral to behavioral health. We discussed lifestyle modifications, including getting appropriate sleep, eating a healthy diet, and striving to control their weight. We discussed avoiding activities that exacerbate their pain. We discussed that we would reassess their pain scale and adjust their care plan as needed during future visits. The patient is engaged in a longitudinal care relationship for the ongoing management of complex chronic conditions, including Chronic Pain Syndrome and long-term opioid analgesic use, along with other chronic pain conditions outlined in the assessment. The treatment plan involves continuous monitoring that includes random urine drug screens, routine imaging, coordination of care, and a multidisciplinary approach, which has been discussed with the patient and will be followed accordingly. 2024 Other During the patient's visit today, we discussed their chronic pain, including the onset, duration, aggravating and relieving factors, nature of the pain, and their pain scale. We attempted to identify how the pain affected the patient's daily activities, mobility, mood, sleep, and relationships. We discussed both the long and short-term goals for pain management. We discussed the current medications including the dose, effectiveness, and potential side effects. Non-opioid therapies were considered, including NSAIDs and other adjuvant medications. We discussed the importance of exercise and recommended tailored exercises for the patient. We discussed physical therapy and potential referral to a physical therapist, if appropriate. We discussed the risks/benefits of alternative treatments such as acupuncture, life care planner, massage, and biofeedback. We discussed behavioral health and coping strategies. If applicable, we performed a PHQ-9 and KALEIGH-7 with the patient. If the patient scored as having anxiety or depression, they were given education on the diagnosis. We discussed the importance of addressing any mental health concerns as mental health disorders are a common comorbidity of chronic pain. We discussed techniques to reduce stress and promote relaxation. If applicable, the patient was offered a referral to behavioral health. We discussed lifestyle modifications, including getting appropriate sleep, eating a healthy diet, and striving to control their weight. We discussed avoiding activities that exacerbate their pain. We discussed that we would reassess their pain scale and adjust their care plan as needed during future visits. The patient is engaged in a longitudinal care relationship for the ongoing management of complex chronic conditions, including Chronic Pain Syndrome and long-term opioid analgesic use, along with other chronic pain conditions outlined in the assessment. The treatment plan involves continuous monitoring that includes random urine drug screens, routine imaging, coordination of care, and a multidisciplinary approach, which has been discussed with the patient and will be followed accordingly. 09/22/2024 Other During the patient's visit today, we discussed their chronic pain, including the onset, duration, aggravating and relieving factors, nature of the pain, and their pain scale. We attempted to identify how the pain affected the patient's daily activities, mobility, mood, sleep, and relationships. We discussed both the long and short-term goals for pain management. We discussed the current medications including the dose, effectiveness, and potential side effects. Non-opioid therapies were considered, including NSAIDs and other adjuvant medications. We discussed the importance of exercise and recommended tailored exercises for the patient. We discussed physical therapy and potential referral to a physical therapist, if appropriate. We discussed the risks/benefits of alternative treatments such as acupuncture, life care planner, massage, and biofeedback. We discussed behavioral health and coping strategies. If applicable, we performed a PHQ-9 and KALEIGH-7 with the patient. If the patient scored as having anxiety or depression, they were given education on the diagnosis. We discussed the importance of addressing any mental health concerns as mental health disorders are a common comorbidity of chronic pain. We discussed techniques to reduce stress and promote relaxation. If applicable, the patient was offered a referral to behavioral health. We discussed lifestyle modifications, including getting appropriate sleep, eating a healthy diet, and striving to control their weight. We discussed avoiding activities that exacerbate their pain. We discussed that we would reassess their pain scale and adjust their care plan as needed during future visits. The patient is engaged in a longitudinal care relationship for the ongoing management of complex chronic conditions, including Chronic Pain Syndrome and long-term opioid analgesic use, along with other chronic pain conditions outlined in the assessment. The treatment plan involves continuous monitoring that includes random urine drug screens, routine imaging, coordination of care, and a multidisciplinary approach, which has been discussed with the patient and will be followed accordingly. Plan Of Treatment Pending Test Test Name Order Date Urine Drug Screen 04/09/2024 Full Confirmation - Specimen Type Urine 04/09/2024 Presumptive Drug Test - Specimen Type Ur ine 04/09/2024 Next Appt Details Provider Name:Chace Betts , 10/16/2024 09:45:00 AM, [address], [place], [place], [id number], Insurance Providers Payer Name Payer Address Payer Phone Subscriber Number Group Number Insured Name Patient Relationship to Insured Coverage Start Date Coverage End Date [facility] Dual Complete [address] [place] [address] [id number] MODSAmos Alcantar Self - patient is the insured 5 5 [employer] [place] [address] [place] [address] [id number] Amos Diggs Self - patient is the insured Medical (General) History Medical History History ICD Code hypertension type II diabetes
--- OUTSIDE RECORDS SUMMARY | 2024-10-01 11:24 | XMS_ITS | Clinical Summary ---
Author Organization [facility] Address [address] [address] Care Team Providers Care Rn Infusion Name Role Phone Araceli Jo MD Primary Care Provider Allergies Active Allergy Reactions Criticality Noted Date Comments Morphine Unknown 03/05/2020 Sulfa (Sulfonamide Antibiotics) Throat swelling,Unknown High 05/07/2017 Medications ALPRAZolam (XANAX) 1 MG tablet Take 1 mg by mouth nightly as needed. 8 Active HYDROcodone-acet aminophen (NORCO) 7.5-325 mg per tablet TAKE 1 TABLET BY MOUTH FOUR TIMES DAILY NEEDED FOR 28 DAYS 0 8 Active albuterol (PROVENTIL HFA, VENTOLIN HFA) 90 mcg/puff inhaler Inhale 2 puffs every 6 (six) hours as needed for wheezing. Active aspirin 81 MG EC tablet Take 81 mg by mouth daily. Active metFORMIN (GLUCOPHAGE) 1000 MG tablet Take 1,000 mg by mouth 2 (two) times a day. 0 Active naproxen (NAPROSYN) 500 MG tablet naproxen 500 mg tablet Active losartan (COZAAR) 25 MG tablet Take 50 mg by mouth in the morning. as directed. 2 Active naloxone (Narcan) 4 mg/actuation nasal spray Narcan 4 mg/actuation nasal spray Active albuterol (ACCUNEB) 1.25 mg/3 mL nebulizer solution 3 mL. Active OneTouch Verio test strips test strip 4 Active ergocalciferol (ERGOCALCIFEROL) 50,000 unit capsule Active Trelegy Ellipta 100-62.5-25 mcg blister with device 4 Active gabapentin (NEURONTIN) 300 mg capsule Take 300 mg by mouth in the morning and 300 mg at noon and 300 mg in the evening. Active Chest Congestion Relief DM 10-100 mg/5 mL ORAL liquid 4 Active meclizine (ANTIVERT) 12.5 mg tablet 4 Active montelukast (SINGULAIR) 10 mg tablet Active pantoprazole (PROTONIX) 40 MG EC tablet 4 Active testosterone cypionate in oil (DEPO-TESTOSTERO NE) 200 mg/mL IM injection 4 Active phenazopyridine (Pyridium) 200 MG tabletIndication s:Urethritis, nonspecific Take 1 tablet (200 mg total) by mouth 3 (three) times a day as needed for bladder spasms. 9 tablet 4 Active busPIRone (BUSPAR) 5 MG tablet Take 1 tablet twice a day by oral route for 30 days. Active levocetirizine (XYZAL) 5 MG tablet 4 Active tamsulosin (FLOMAX) 0.4 mg 24 hr capsule Take 1 capsule every day by oral route for 30 days. Active Active Problems Problem Noted Date Diagnosed Date Diastasis recti 12/05/2021 Assessment & Plan (12/05/2021 10:43 AM CDT): Follow up as needed. Resolved Problems Problem Noted Date Diagnosed Date Resolved Date Abdominal mass 12/04/2021 12/05/2021 Immunizations Immunization Administration Dates Next Due pneumococcal conjugate PCV 15 (VAXNEUVANCE) 05/11/2022 pneumococcal polysaccharide PPV 23 (PNEUMOVAX 23 ) 09/01/2009 zoster recombinant (SHINGRIX) 10/24/2022 Social History Tobacco Use Types Packs/Day Years Used Date Smoking Tobacco: Never Smokeless Tobacco: Former Tobacco Cessation:Counseling Given: Not Answered Alcohol Use Standard Drinks/Week Comments Not Currently 0 (1 standard drink = 0.6 oz pur e alcohol) PHQ-2 Answer Date Recorded PHQ-2 Score 0 07/09/2023 Sex and Gender Information Value Date Recorded Sex Assigned at Not on file Legal Sex Male 11:09 AM CDT Gender Identity Not on file Sexual Orientation Not on file Last Filed Vital Signs Vital Sign Reading Time Taken Comments Blood Pressure 128/85 07/09/2023 2:03 PM CDT Pulse 96 07/09/2023 2:03 PM CDT Temperature 36.8 C (98.2 F) 07/09/2023 2:03 PM CDT Respiratory Rate - - Oxygen Saturation 96% 07/09/2023 2:03 PM CDT Inhaled Oxygen Concentration - - Weight 95.7 kg (211 lb) 11/26/2023 9:49 AM CDT Height 182.9 cm (6') 11/26/2023 9:49 AM CDT Body Mass Index 28.62 11/26/2023 9:49 AM CDT Plan of Treatment Health Maintenance Due Date Last Done Comments Medicare Annual Wellness 1965 Td, Tdap Vaccines Adult 08/26/1982 Shingrix (ZOSTER RECOMBINANT ) (2 of 2) 12/19/2022 10/24/2022 RSV 60+ (1 - Risk 60-74 year s 1-dose series) 2023 Influenza Vaccination (#1) 2024 Colonoscopy 12/10/2026 12/10/2016 Pneumococcal Vaccine: 50+ Years Completed 07/24/2022, 09/01/2009 HIB Vaccines Aged Out No longer eligi ble based on patient's age to complete this topic HPV Vaccines Aged Out No longer eligi ble based on patient's age to complete this topic Hepatitis A Vaccines Aged Out No long er eligible based on patient's age to complete this topic Hepatitis B Vaccines Aged Out No long er eligible based on patient's age to complete this topic IPV Vaccines Aged Out No longer eligi ble based on patient's age to complete this topic Meningococcal Vaccines Aged Out No lo nger eligible based on patient's age to complete this topic RSV Mab Nirsevimab (Beyfortu s) <20 months Aged Out No longer eligible b ased on patient's age to complete this topic Rotavirus Vaccines Aged Out No longer eligible based on patient's age to complete this topic Insurance [place] [facility] Care Teams Rn Infusion Relationship Specialty Start Date End Date Araceli Jo MD [address] [place] [phone] PCP - General Internal Medicine 03/21/20
--- NOTE | 2024-10-01 11:37 | USCV_ITS ---
Amos Diggs Age: 59 Gender: M : 1965 Exam Date: 10/01/2024 11:51 Ordering Phys: Karol Gonzalez MD Technologist: Exam Location: [facility] Indication: rt leg pain and swelling PROCEDURES: Venous duplex imaging was performed in only the right lower extremity. The following venous structures were evaluated: common femoral vein, profunda vein, proximal portion of the greater saphenous vein, superficial femoral vein, and the popliteal vein. In addition, the posterior tibial and peroneal trunk were evaluated. FINDINGS: Normal 2-D Doppler and augmentation and compressibility throughout the lower extremity venous structures. Additional imaging through the proximal calf veins also reveals no thrombus. Limited evaluation of the greater saphenous vein is patent with no thrombus. CONCLUSIONS No evidence of right lower extremity DVT. Luis Marion MD (Electronically Signed) Final Date: 01 October 2024 13:29 S
[2024-10-01] MEDS: HYDROcodone-acetaminophen 10-325 mg Tablet 1 TAB PO (12:02)
--- NOTE | 2024-10-01 12:03 | ED_ITS ---
HPI - Extremity Problem General: Chief complaint: Extremity Injury, Lower Stated complaint: right hip/knee pain Time Seen by Provider: 10/01/24 11:34 History of Present Illness: 59-year-old man who presents to the [facility] room with knee pain and swelling. This has been going on for about a week. He has no known trauma. No redness. He has swelling that goes up and down. Pain is worse with movement. Pain is anterior and goes up to his hip now. Related Data Previous Rx's ?Medication ?Instructions ?Recorded diclofenac sodium 50 mg 50 mg PO BID PRN pain #14 ta bs 10/01/24 tablet,delayed release prednisone 20 mg tablet 60 mg (3 x 20 mg) PO DAILY # 20 tabs 10/01/24 tramadol 50 mg tablet 50 mg PO Q8H PRN pain #20 ta bs 10/01/24 Allergies Allergy/AdvReac Type Severity Reaction Status Date / Time morphine Allergy Unknown Verified 10/01/24 10:43 Sulfa (Sulfonamide Allergy Unknown Verified 10/01/24 10:43 Antibiotics) Review of Systems Narrative: Constitutional symptoms: Negative except as documented in HPI. Skin symptoms: Negative except as documented in HPI. Eye symptoms: Negative except as documented in HPI. ENMT symptoms: Negative except as documented in HPI. Respiratory symptoms: Negative except as documented in HPI. Cardiovascular symptoms: Negative except as documented in HPI. Gastrointestinal symptoms: Negative except as documented in HPI. Genitourinary symptoms: Negative except as documented in HPI. Musculoskeletal symptoms: Negative except as documented in HPI. Neurologic symptoms: Negative except as documented in HPI. Psychiatric symptoms: Negative except as documented in HPI. Endocrine symptoms: Negative except as documented in HPI. Physical Exam Narrative: EXAM NARRATIVE: General: Alert, no acute distress. Skin: warm and dry Head: Normocephalic Neck: Trachea midline Eye: Extraocular movements are intact. Ears, nose, mouth and throat: Oral mucosa moist Respiratory: Respirations are non-labored Musculoskeletal: Some limitation to range of motion secondary to pain. Mild effusion. No redness. No warmth. Pain is on the anterior part of the knee. Gastrointestinal: Abdomen does not appear distended Neurological: Alert and oriented, No focal neurological deficit observed. Psychiatric: Cooperative, appropriate mood & affect. Course Vital Signs: Vital signs: Vital Signs Temperature 97.8 F 10/01/24 10:32 Pulse Rate 69 10/01/24 10:32 Respiratory Rate 18 10/01/24 10:32 Blood Pressure 161/88 10/01/24 10:32 Pulse Oximetry 98 10/01/24 10:32 Oxygen Delivery Me thod Room Air 10/01/24 10:32 MDM - Extremity (Nontraumatic) Medical Decision Making X-ray of the hip and pelvis: Osteoarthritis of the right hip, but no acute fractures. This was reviewed and interpreted by myself the emergency room physician. I also reviewed the radiology report. X-ray of the knee: Trace joint effusion but no other changes. This was reviewed and interpreted by myself the emergency room physician. I also reviewed the radiology report. Ultrasound of the right lower extremity: No DVT. This was reviewed and interpreted by myself the emergency room physician. I also reviewed the radiology report. Assessment and plan: Knee pain ?[place], IM Decadron and IM Toradol in the emergency room - Discharged home - Discussed plan with patient. Answered any questions. - Evaluation and treatment of this problem were appropriate in the emergency setting. Lab Data Radiology Impressions Hip/Pelvis X-Ray 10/01/24 11:09 IMPRESSION: Moderate osteoarthritis of the right hip. Knee X-Ray 10/01/24 11:09 IMPRESSION: No acute abnormality. Trace joint effusion without significant arthropathic change. All radiology interpretation(s) finalized by discharge Discharge Plan Discharge Patient Disposition: Home Clinical Impression: Pain and swelling of knee Condition: Stable Prescriptions: New prednisone 20 mg tablet 60 mg PO DAILY Qty: 20 0RF Rx Instructions: 3 tabs (60 mg) x 3 days. 2 tabs (40 mg) x 3 days. 1 tab (20 mg) x 3 days. 1/2 tab (10 mg) x 4 days tramadol 50 mg tablet 50 mg PO Q8H PRN (Reason: pain) Qty: 20 0RF diclofenac sodium 50 mg tablet,delayed release (DR/EC) 50 mg PO BID PRN (Reason: pain) Qty: 14 0RF Discharge Orders: Discharge ED (Routine); Ordered 10/01/24 Ordered By: Karol Gonzalez Referrals: Lana Simon MD [Physician, Orthopedics] - 4-7 days Referral Note: Please call for an appointment with either your PCP or orthopedics in the next 4 to 7 days if pain persist. Discharge Diet: Usual diet Discharge Activity: Increase activity as tolerated Patient Instructions: Opioid Safety, Pain Management, Patient Portal & [place] Instructions Activity Restrictions/Additional Instructions: Thank you for choosing [facility] for your healthcare needs today. You have been screened and evaluated and felt safe for discharge. Health conditions do change or evolve sometimes and as such it is important that you follow up with your Primary Doctor to be re checked, 3-5 days is a general good time frame for follow up. You are always welcome to return to the ED for re assessment if your symptoms are worsening or you have new concerns Print Language: Khmer Coding Level of Care Code ED Sole Rounder for Noemi Molina
== END 2024-10-01 12:23 | disposition home or self-care (01) ==
PROVIDERS: Emergency Provider Emergency Medicine
DX: M25.461 Effusion, right knee (principal); M25.561 Pain in right knee; M25.551 Pain in right hip; Z88.5 Allergy status to narcotic agent; Z88.2 Allergy status to sulfonamides
CPT/HCPCS: 73502; 73560; 93971; 96372; 99284; J1100; J1885; J9999